=== PATIENT | male | born 1990 | race American Indian/Alaskan Native ===

== ENCOUNTER 2017-11-12 20:28 | Inpatient (IN) | payer SELFPAY ==
[2017-11-12] MEDS ORDERED: NACL 0.9% 500 ML 500 ML IV ONE (20:46)
[2017-11-12 21:09] LABS: Hematocrit 44.6 % (35.5-45.6); Mean Corpuscular HGB Conc 34 % (32-34); Mean Corpuscular Hemoglobin 28 pg (28-32); Mean Corpuscular Volume 85 fl (84-94); Platelet Count 159 K/mm3 (140-440); Red Blood Count 5.27 M/mm3 (3.65-5.03); Red Cell Distribution Width 14.1 % (13.2-15.2)
[2017-11-12 21:19] LABS: INR 1.22 (0.87-1.13)
[2017-11-12 21:32] LABS: Alanine Aminotransferase 223 units/L (7-56); Albumin 4.2 g/dL (3.9-5); BUN/Creatinine Ratio 11; Blood Urea Nitrogen 15 mg/dL (9-20); Calcium 9.2 mg/dL (8.4-10.2); Hemolysis Index 2
[2017-11-12] MEDS ORDERED: TYLENOL ONE (21:47)
[2017-11-12] MEDS ORDERED: TYLENOL PO ONE (21:51)
[2017-11-12 22:00] LABS: Basophils % (Manual) 0 % (0.0-1.8); RBC Morphology Normal; Total Cells Counted 100
[2017-11-12] MEDS ORDERED: NACL 0.9% 1000 ML 1,000 ML IV ONE (22:04)
--- NOTE | 2017-11-12 22:22 | XRay Report ---
FINAL REPORT PROCEDURE: XR CHEST ROUTINE 2V TECHNIQUE: PA and lateral chest radiographs were obtained. CPT 69145 HISTORY: Shortness of breath COMPARISON: No prior studies are available for comparison. FINDINGS: Heart: Normal. Mediastinum/Vessels: Normal. Lungs/Pleural space: Normal. Bony thorax: No acute osseous abnormality. Other: IMPRESSION: Normal examination.
[2017-11-12] MEDS ORDERED: TORADOL IV ONE (22:37)
--- NOTE | 2017-11-12 22:37 | Emergency Department Report ---
HPI - General Chief Complaint: Chest Pain Time Seen by Provider: 11/12/17 21:57 - HPI HPI: 27-year-old male presents to the emergency department with complaint of fever, chills, body aches, sneezing and some intermittent abdominal and/or chest/lungs pains. He says that mostly the abdomen and/or chest only hurts when he is sneezing. He denies any sore throat, cough, rash. He does not have any past medical history. No recent travel or sick contacts at home. He denies any heavy alcohol or illicit drug use. He's been taking Advil and Mucinex for his discomfort and symptoms for the past 2 days. He says that the symptoms started on Thursday, 2 days ago, but yesterday everything got much worse. ED Past Medical Hx - Past Medical History Previous Medical History?: No - Surgical History Past Surgical History?: No - Social History Smoking Status: Never Smoker Substance Use Type: Marijuana - Medications Home Medications: Home Medications Medication Instructions Recorded Confirmed Last Taken Type No Known Home Medications [No 11/12/17 11/12/17 Unknown History Reported Home Medications] ED Review of Systems ROS: Stated complaint: FLU LIKE SX Other details as noted in HPI Comment: All other systems reviewed and negative Constitutional: chills, fever Eyes: denies: eye pain, eye discharge, vision change ENT: denies: ear pain, throat pain Respiratory: denies: cough, wheezing Cardiovascular: denies: palpitations, edema Gastrointestinal: abdominal pain. denies: nausea, vomiting Genitourinary: denies: urgency, dysuria Musculoskeletal: myalgia. denies: joint swelling Skin: denies: rash, lesions Neurological: headache. denies: numbness Physical Exam - Physical Exam Vital Signs: Vital Signs 11/12/17 20:36 Temperature 102.7 F H Pulse Rate 131 H Blood Pressure 108/66 O2 Sat by Pulse 100 Oximetry Physical Exam: GENERAL: The patient is well-developed well-nourished. HENT: Normocephalic. Atraumatic. Patient has moist mucous membranes. Oropharynx is clear without tonsillar hypertrophy, erythema or exudates. EYES: Extraocular motions are intact. Pupils equal reactive to light bilaterally. There is some bilateral conjunctival injection. NECK: Supple. Trachea is midline. CHEST/LUNGS: Clear to auscultation. There is no respiratory distress noted. HEART/CARDIOVASCULAR: Regular. There is mild to moderate tachycardia. There is no murmur. ABDOMEN: Abdomen is soft. Mild tenderness palpation to the right upper quadrant and epigastrium. No guarding. Negative Duran sign. Patient has normal bowel sounds. There is no abdominal distention. SKIN: Skin is hot but dry. NEURO: The patient is awake, alert, and oriented. The patient is cooperative. The patient has no focal neurologic deficits. The patient has normal speech and gait. MUSCULOSKELETAL: There is no tenderness or deformity. There is no limitation range of motion. There is no evidence of acute injury. ED Course Vital Signs 11/12/17 20:36 Temperature 102.7 F H Pulse Rate 131 H Blood Pressure 108/66 O2 Sat by Pulse 100 Oximetry - Consultations Consultation #1: I had spoken to the records management clerk web production designer, Dr. Mayes, who listened to the case presentation including the abnormal belly labs, gallbladder sludge and patient's presentation with fever. At first I suggested the patient might be able to go home and Dr. Mayes recommended that the patient return if there is any fever, chills and abdominal pain and that the patient should have a low threshold to return. Upon reevaluation, the patient remains tachycardic and did present with the fever and mild abdominal pains. Therefore the patient will be admitted to the hospital and gastroenterology has been added as a consult. 11/13/17 01:33 ED Medical Decision Making - Lab Data Result diagrams: 11/12/17 20:48 11/12/17 20:54 - Radiology Data Radiology results: report reviewed, image reviewed interpreted by me: Chest x-ray does not show any acute process. There are no pleural effusions, obvious pneumonia and there is no pneumothorax. Ultrasound of the upper abdomen shows sludge in the gallbladder but there are no shadowing stones and no signs of biliary dilatation. - Medical Decision Making Patient presents with 1-2 days of what he describes as flulike symptoms but definitely with some fever, chills, body aches. He does not describe serious abdominal pain but does say that when he sneezes or moves in a certain manner that he can feel it in his abdomen and sometimes his chest. Prior to getting any labs back, the patient did get a dose of Tylenol but secondary to the elevated bilirubin and LFTs he will not receive any more Tylenol until cleared to get some from gastroenterology and/or medicine. He was given some Toradol after he was seen to have no renal insufficiency. Patient has a leukocytosis with a left shift. He has a total bilirubin of 4.2, AST of 72 and ALT of 223. Ultrasound was done that shows gallbladder sludge but no signs of biliary dilatation or obvious stone. Negative hepatitis panel. Negative for influenza. Chest x-ray does not show any acute process. It is possible that the patient has a viral syndrome but there are otherwise has not been any etiology of the patient's fever, nor his elevated LFTs. His vitals did improve with some IV fluid resuscitation and antipyretics. However the patient continues to have some tachycardia, even at rest. Since the patient is young, without any past medical history, and suddenly has these elevated LFTs along with a fever without a known source, I decided to admit the patient to the hospital for further evaluation and treatment. He was accepted for admission by the hospitalist, Dr. Ledesma, and a gastroenterology consult has been placed. Blood cultures have been sent and the patient will be started on broad-spectrum antibiotics. - Differential Diagnosis influenza, viral syndrome, cholangitis, cholecystitis, pneumonia, sepsis Critical Care Time: No Critical care attestation.: If time is entered above; I have spent that time in minutes in the direct care of this critically ill patient, excluding procedure time. ED Disposition Clinical Impression: Elevated LFTs, Hypokalemia Fever Qualifiers: Fever type: unspecified Qualified Code(s): R50.9 - Fever, unspecified Leukocytosis Qualifiers: Leukocytosis type: unspecified Qualified Code(s): D72.829 - Elevated white blood cell count, unspecified Disposition: OP ADMIT IP TO THIS HOSP Is pt being admited?: Yes Condition: Stable Referrals: PRIMARY CARE, [Primary Care Provider] - 3-5 Days Time of Disposition: 01:39
[2017-11-12 22:53] LABS: Hepatitis A Antibody IgM Non-Reactive (NonReactive); Hepatitis B Core IgM Non-Reactive (NonReactive); Hepatitis B Surface Antigen Non-Reactive (Negative); Hepatitis C Virus Antibody Non-Reactive (NonReactive)
[2017-11-12] MEDS ORDERED: K-DUR PO ONE (22:55)
--- NOTE | 2017-11-12 23:44 | Ultrasound Report ---
FINAL REPORT PROCEDURE: US ABDOMEN LIMITED TECHNIQUE: Real-time sonography in multiple planes of the gallbladder fossa and CBD with imaging of the adjacent liver, pancreas, and right kidney was performed with image documentation. CPT 15555 HISTORY: Upper abd pain, elevated LFT/Bili COMPARISON: No prior studies are available for comparison. FINDINGS: Liver: Increased echogenicity consistent with fatty infiltration. Gallbladder: No shadowing stones. Echogenic sludge in the gallbladder. Intrahepatic bile ducts: Normal . Extrahepatic bile ducts: Normal. Common duct measures 0.4 cm. Pancreas: Normal as visualized with suboptimal depiction of the pancreatic tail. Right kidney: Normal echotexture. No focal renal mass, calculus, or hydronephrosis. Other: No free fluid. IMPRESSION: Echogenic sludge in the gallbladder. No shadowing stone. No biliary dilatation.
[2017-11-13] MEDS ORDERED: ZOSYN/NS 4.5GM/100ML 4.5 GM/100 ML VIAL IV SCH (02:00)
[2017-11-13] MEDS ORDERED: ZOFRAN IV PRN (02:39)
[2017-11-13 04:04] LABS: Bilirubin,Urine SM (Negative); Blood,Urine MOD (Negative); Color,Urine Amber (Yellow); Granular Casts,Urine 5 /LPF; Hyaline Casts,Urine 29 /LPF; Mucus,Urine 1+ /HPF
[2017-11-13 04:14] LABS: Ictotest,Urine Positive (Negative)
[2017-11-13] MEDS: TYLENOL PO PRN ×4 (05:20→22:32)
[2017-11-13] MEDS: NACL 0.9% 1000 ML 1,000 ML IV SCH (05:39)
--- NOTE | 2017-11-13 07:13 | History and Physical Report ---
DATE OF ADMISSION: 11/13/2017. CHIEF COMPLAINT: Flu-like symptom. HISTORY OF PRESENT ILLNESS: The patient is a 27-year-old male who presented with flu-like symptoms that include fever, bodyaches, chills, sneezing, and intermittent abdominal and chest pain. The patient said that his chest and abdomen hurts when he sneezes. There is no history of sore throat. No history of cough and no history of shortness of breath. The patient denied any contact with any sick person at home and admitted to having nausea with no vomiting. Also, the patient has history of diarrhea and said that he has been taking Advil or Mucinex for his symptoms for about two days, but the symptoms became worse 24 hours prior to presentation. The patient was seen in the Emergency Room, evaluated, and found to have sludge in the gallbladder with no stones from the ultrasound result. Also, the patient was noted to be tachycardic with elevated bilirubin and elevated liver transaminases, and presented for further evaluation. PAST MEDICAL HISTORY: Unremarkable. FAMILY HISTORY: Noncontributory. PAST SURGICAL HISTORY: Unremarkable. SOCIAL HISTORY: The patient does not smoke cigarettes, does smokes marijuana, and does not drink alcohol. MEDICATIONS: The patient is not on any medication. ALLERGIES: There are no known drug allergies. REVIEW OF SYSTEMS: CONSTITUTIONAL: Fever and chills present. No diaphoresis. HEENT: There is no headache or sore throat. CARDIOVASCULAR SYSTEM: Chest discomfort noted. No orthopnea. RESPIRATORY SYSTEM: Sneezing present. No cough, no shortness of breath. GASTROINTESTINAL SYSTEM: Abdominal pain present. Nausea present. Diarrhea present. No vomiting. NEUROLOGICAL SYSTEM: There is no numbness, no dizziness, no altered mental status. MUSCULOSKELETAL SYSTEM: There is no joint pain or swelling. DERMATOLOGICAL SYSTEM: There is no skin rash or itching. GENITOURINARY SYSTEM: There is no dysuria, hematuria or flank pain. Rest of system review is normal. PHYSICAL EXAMINATION: GENERAL: At the time of exam, the patient was found to be alert, oriented x 3, and not in acute distress. VITAL SIGNS: Shows temperature of 97.8 degree Fahrenheit, pulse of 98, respirations 25, blood pressure 110/63, O2 sat of 99% on room air. HEENT: Exam showed pupils to be equal, round, reactive to light and accommodation. Extraocular muscles are intact. NECK: Supple with no JVD or carotid bruit. CARDIOVASCULAR SYSTEM: Show normal first and second heart sounds with no gallops or murmurs. RESPIRATORY SYSTEM: Show good air entry on both sides of the lungs with no abdominal breath sounds. GASTROINTESTINAL SYSTEM: Show abdomen to be full, soft, and nontender with no organomegaly or rigidity. NEUROLOGIC: Exam shows no focal deficit. MUSCULOSKELETAL SYSTEM: Show no joint swelling or tenderness. DERMATOLOGICAL SYSTEM: Show no skin rash. GENITOURINARY: Showing no costovertebral angle tenderness. PERTINENT LABORATORY DATA AND IMAGING STUDIES: The patient had chest x-ray done and the chest x-ray show no acute cardiopulmonary lesion. Also, the patient had an abdominal ultrasound done that shows echogenic sludge in the gallbladder with no stones found and no biliary dilatation seen. The patient's lab test shows CBC with elevated white count of 14,500, with normal hemoglobin, normal hematocrit, and normal MCV. The patient's CBC differential shows elevated segmented neutrophil of 88% with no significant bands. Patient's coagulation studies were unremarkable. The patient's chemistry showed low potassium of 3.4, low sodium of 130, and low chloride of 96.9. The patient's total bilirubin is high with a value of 4.2. Liver transaminases show a high AST of 72 and high ALT of 223, with elevated alkaline phosphatase of 173. This patient's acetaminophen level was unremarkable. Hepatitis serology came back unremarkable. DIAGNOSES: 1. Fever. 2. Leukocytosis. 3. Elevated bilirubin. 4. Systemic inflammatory response syndrome. PLAN: The patient will be admitted to medical floor and will be on intravenous normal saline at 125 mL an hour. The patient will also be on Tylenol 650 mg by mouth every 4 hours for fever and headache and will be on intravenous Levaquin 750 mg daily as an empiric treatment for the presentations of fever, leukocytosis, and systemic inflammatory response syndrome. The patient will continue Gastroenterology consult with Dr. Gerber Pappas. Deep venous thrombosis prophylaxis will be through heparin 5000 units subcutaneous every 12 hours. The patient has already had potassium replacement in the Emergency Room. The patient's urinalysis will be done when the urine is available. JOB# [id number] OCN/NTS
[2017-11-13] MEDS: LEVAQUIN 750MG/150ML 750 MG/150 ML BAG IV SCH (09:52)
[2017-11-13] MEDS: HEPARIN SUB-Q SCH ×2 (09:53→22:33)
[2017-11-13 11:44] LABS: Alanine Aminotransferase 170 units/L (7-56); Albumin 3.6 g/dL (3.9-5); BUN/Creatinine Ratio 12; Blood Urea Nitrogen 15 mg/dL (9-20); Calcium 8.8 mg/dL (8.4-10.2); Hemolysis Index 0
--- NOTE | 2017-11-13 12:04 | Gastroenterology Consultation ---
<SEVENYAZMINSAUNDRA BOUCHER - Last Filed: 11/13/17 12:19> History of Present Illness - Reason for Consult Consult date: 11/13/17 Intermittent abdominal pain, elevated LFTS Requesting physician: ANNETTA HONG - History of Present Illness Mr Garrett is a 27 y/o male admitted with a 4 day hx of body aches, fever, intermittent abdominal pain and diarrhea. On admission he was found to have low grade fever and WBC 14.5, elevated ast 72, alt 223, ALP 173 and TB 4.2. He has no appetite. He also complaints of neck spams and headache. No prior medical hx. Family is at bedside. He denies illicit drug use, ETOH only on weekends. Past History Past Surgical History: No surgical history Social history: no significant social history Family history: no significant family history Medications and Allergies Allergies Allergy/AdvReac Type Severity Reaction Status Date / Time No Known Allergies Allergy Verified 11/12/17 21:50 Home Medications Medication Instructions Recorded Confirmed Last Taken Type No Known Home Medications [No 11/12/17 11/12/17 Unknown History Reported Home Medications] Active Meds: Active Medications Acetaminophen (Tylenol) 650 mg PO Q4H PRN PRN Reason: For Pain/Fever/Headache Last Admin: 11/13/17 05:20 Dose: 650 mg Heparin Sodium (Porcine) (Heparin) 5,000 unit SUB-Q Q12HR BERTA Last Admin: 11/13/17 09:53 Dose: 5,000 unit Levofloxacin/Dextrose (Levaquin 750mg/150ml) 750 mg in 150 mls @ 100 mls/hr IV Q24HR BERTA; Protocol Last Admin: 11/13/17 09:52 Dose: 100 mls/hr Sodium Chloride (Nacl 0.9% 1000 Ml) 1,000 mls @ 125 mls/hr IV DIRECT BERTA Last Admin: 11/13/17 05:39 Dose: 125 mls/hr Ondansetron HCl (Zofran) 4 mg IV Q8H PRN PRN Reason: Nausea And Vomiting Review of Systems - Review of Systems All systems: negative Constitutional: anorexia, weakness Gastrointestinal: abdominal pain, nausea, vomiting, diarrhea Exam - Constitutional Vital Signs: Temp Pulse Resp BP Pulse Ox 100.1 F H 104 H 22 113/60 95 11/13/17 08:08 11/13/17 08:08 06/08/18 08:08 11/13/17 08:08 11/13/17 08:08 General appearance: no acute distress - EENT Eyes: EOM intact ENT: hearing intact - Neck Neck: supple - Respiratory Respiratory: bilateral: CTA - Cardiovascular Heart Sounds: Present: S1 & S2 Extremities: Full ROM - Gastrointestinal General gastrointestinal: Present: soft, tender, normal bowel sounds - Integumentary Integumentary: Present: warm, dry - Neurologic Neurological: alert and oriented x3 - Psychiatric Psychiatric: appropriate mood/affect - Labs CBC & Chem 7: 11/12/17 20:48 11/13/17 10:46 Lab Results: Laboratory Results - last 24 hr 11/12/17 11/12/17 11/12/17 20:48 20:48 20:54 WBC 14.5 H RBC 5.27 H Hgb 15.0 Hct 44.6 MCV 85 MCH 28 MCHC 34 RDW 14.1 Plt Count 159 Add Manual Diff Complete Total Counted 100 Seg Neutrophils % Machine Slat Basket Maker Seg Neuts % (Manual) 88.0 H Band Neutrophils % 0 Lymphocytes % (Manual) 4.0 L Reactive Lymphs % (Man) 0 Monocytes % (Manual) 6.0 Eosinophils % (Manual) 2.0 Basophils % (Manual) 0 Metamyelocytes % 0 Myelocytes % 0 Promyelocytes % 0 Blast Cells % 0 Nucleated RBC % Not Reportable Seg Neutrophils # Man 12.8 H Band Neutrophils # 0.0 Lymphocytes # (Manual) 0.6 L Abs React Lymphs (Man) 0.0 Monocytes # (Manual) 0.9 H Eosinophils # (Manual) 0.3 Basophils # (Manual) 0.0 Metamyelocytes # 0.0 Myelocytes # 0.0 Promyelocytes # 0.0 Blast Cells # 0.0 WBC Morphology Not Reportable Hypersegmented Neuts Not Reportable Hyposegmented Neuts Not Reportable Hypogranular Neuts Not Reportable Smudge Cells Not Reportable Toxic Granulation Not Reportable Toxic Vacuolation Not Reportable Dohle Bodies Not Reportable Pelger-Huet Anomaly Not Reportable Gina Rods Not Reportable Platelet Estimate Not Reportable Clumped Platelets Not Reportable Plt Clumps, EDTA Not Reportable Large Platelets Not Reportable Giant Platelets Not Reportable Platelet Satelliting Not Reportable Plt Morphology Comment Not Reportable RBC Morphology Normal Dimorphic RBCs Not Reportable Polychromasia Not Reportable Hypochromasia Not Reportable Poikilocytosis Not Reportable Anisocytosis Not Reportable Microcytosis Not Reportable Macrocytosis Not Reportable Spherocytes Not Reportable Pappenheimer Bodies Not Reportable Sickle Cells Not Reportable Target Cells Not Reportable Tear Drop Cells Not Reportable Ovalocytes Not Reportable Helmet Cells Not Reportable Foote-Cearfoss Bodies Not Reportable Heppner Rings Not Reportable Usama Cells Not Reportable Bite Cells Not Reportable Crenated Cell Not Reportable Elliptocytes Not Reportable Acanthocytes (Spur) Not Reportable Rouleaux Not Reportable Hemoglobin C Crystals Not Reportable Schistocytes Not Reportable Malaria parasites Not Reportable Pardeep Bodies Not Reportable Hem Pathologist Commnt No PT INR VBG pH Sodium 134 L Potassium 3.4 L Chloride 96.9 L Carbon Dioxide 22 Anion Gap 19 BUN 15 Creatinine 1.4 Estimated GFR > 60 BUN/Creatinine Ratio 11 Glucose 134 H Lactic Acid Calcium 9.2 Total Bilirubin 4.20 H AST 72 H ALT 223 H Alkaline Phosphatase 173 H Troponin T < 0.010 Total Protein 7.7 Albumin 4.2 Albumin/Globulin Ratio 1.2 Urine Color Urine Turbidity Urine pH Ur Specific [place] Urine Protein Urine Glucose (UA) Urine Ketones Urine Blood Urine Nitrite Urine Bilirubin Urine Ictotest Urine Urobilinogen Ur Leukocyte Esterase Urine WBC (Auto) Urine RBC (Auto) U Epithel Cells (Auto) Hyaline Casts Granular Casts Urine Mucus Acetaminophen Hepatitis A IgM Ab Hep Bs Antigen Hep B Core IgM Ab Hepatitis C Antibody Influenza A (Rapid) Influenza B (Rapid) 11/12/17 11/12/17 11/12/17 20:55 20:55 20:55 WBC RBC Hgb Hct MCV MCH MCHC RDW Plt Count Add Manual Diff Total Counted Seg Neutrophils % Seg Neuts % (Manual) Band Neutrophils % Lymphocytes % (Manual) Reactive Lymphs % (Man) Monocytes % (Manual) Eosinophils % (Manual) Basophils % (Manual) Metamyelocytes % Myelocytes % Promyelocytes % Blast Cells % Nucleated RBC % Seg Neutrophils # Man Band Neutrophils # Lymphocytes # (Manual) Abs React Lymphs (Man) Monocytes # (Manual) Eosinophils # (Manual) Basophils # (Manual) Metamyelocytes # Myelocytes # Promyelocytes # Blast Cells # WBC Morphology Hypersegmented Neuts Hyposegmented Neuts Hypogranular Neuts Smudge Cells Toxic Granulation Toxic Vacuolation Dohle Bodies Pelger-Huet Anomaly Gina Rods Platelet Estimate Clumped Platelets Plt Clumps, EDTA Large Platelets Giant Platelets Platelet Satelliting Plt Morphology Comment RBC Morphology Dimorphic RBCs Polychromasia Hypochromasia Poikilocytosis Anisocytosis Microcytosis Macrocytosis Spherocytes Pappenheimer Bodies Sickle Cells Target Cells Tear Drop Cells Ovalocytes Helmet Cells Foote-Cearfoss Bodies Heppner Rings Fortine Cells Bite Cells Crenated Cell Elliptocytes Acanthocytes (Spur) Rouleaux Hemoglobin C Crystals Schistocytes Malaria parasites Pardeep Bodies Hem Pathologist Commnt PT 16.1 H INR 1.22 H VBG pH 7.436 H Sodium Potassium Chloride Carbon Dioxide Anion Gap BUN Creatinine Estimated GFR BUN/Creatinine Ratio Glucose Lactic Acid 1.30 Calcium Total Bilirubin AST ALT Alkaline Phosphatase Troponin T Total Protein Albumin Albumin/Globulin Ratio Urine Color Urine Turbidity Urine pH Ur Specific [place] Urine Protein Urine Glucose (UA) Urine Ketones Urine Blood Urine Nitrite Urine Bilirubin Urine Ictotest Urine Urobilinogen Ur Leukocyte Esterase Urine WBC (Auto) Urine RBC (Auto) U Epithel Cells (Auto) Hyaline Casts Granular Casts Urine Mucus Acetaminophen Hepatitis A IgM Ab Hep Bs Antigen Hep B Core IgM Ab Hepatitis C Antibody Influenza A (Rapid) Influenza B (Rapid) 11/12/17 11/12/17 11/12/17 22:14 22:17 22:40 WBC RBC Hgb Hct MCV MCH MCHC RDW Plt Count Add Manual Diff Total Counted Seg Neutrophils % Seg Neuts % (Manual) Band Neutrophils % Lymphocytes % (Manual) Reactive Lymphs % (Man) Monocytes % (Manual) Eosinophils % (Manual) Basophils % (Manual) Metamyelocytes % Myelocytes % Promyelocytes % Blast Cells % Nucleated RBC % Seg Neutrophils # Man Band Neutrophils # Lymphocytes # (Manual) Abs React Lymphs (Man) Monocytes # (Manual) Eosinophils # (Manual) Basophils # (Manual) Metamyelocytes # Myelocytes # Promyelocytes # Blast Cells # WBC Morphology Hypersegmented Neuts Hyposegmented Neuts Hypogranular Neuts Smudge Cells Toxic Granulation Toxic Vacuolation Dohle Bodies Pelger-Huet Anomaly Gina Rods Platelet Estimate Clumped Platelets Plt Clumps, EDTA Large Platelets Giant Platelets Platelet Satelliting Plt Morphology Comment RBC Morphology Dimorphic RBCs Polychromasia Hypochromasia Poikilocytosis Anisocytosis Microcytosis Macrocytosis Spherocytes Pappenheimer Bodies Sickle Cells Target Cells Tear Drop Cells Ovalocytes Helmet Cells Foote-Cearfoss Bodies Heppner Rings Fortine Cells Bite Cells Crenated Cell Elliptocytes Acanthocytes (Spur) Rouleaux Hemoglobin C Crystals Schistocytes Malaria parasites Pardeep Bodies Hem Pathologist Commnt PT INR VBG pH Sodium Potassium Chloride Carbon Dioxide Anion Gap BUN Creatinine Estimated GFR BUN/Creatinine Ratio Glucose Lactic Acid Calcium Total Bilirubin AST ALT Alkaline Phosphatase Troponin T Total Protein Albumin Albumin/Globulin Ratio Urine Color Urine Turbidity Urine pH Ur Specific [place] Urine Protein Urine Glucose (UA) Urine Ketones Urine Blood Urine Nitrite Urine Bilirubin Urine Ictotest Urine Urobilinogen Ur Leukocyte Esterase Urine WBC (Auto) Urine RBC (Auto) U Epithel Cells (Auto) Hyaline Casts Granular Casts Urine Mucus Acetaminophen < 5.0 L Hepatitis A IgM Ab Non-reactive Hep Bs Antigen Non-reactive Hep B Core IgM Ab Non-reactive Hepatitis C Antibody Non-reactive Influenza A (Rapid) Negative Influenza B (Rapid) Negative 11/12/17 11/13/17 11/13/17 23:16 03:22 10:46 WBC RBC Hgb Hct MCV MCH MCHC RDW Plt Count Add Manual Diff Total Counted Seg Neutrophils % Seg Neuts % (Manual) Band Neutrophils % Lymphocytes % (Manual) Reactive Lymphs % (Man) Monocytes % (Manual) Eosinophils % (Manual) Basophils % (Manual) Metamyelocytes % Myelocytes % Promyelocytes % Blast Cells % Nucleated RBC % Seg Neutrophils # Man Band Neutrophils # Lymphocytes # (Manual) Abs React Lymphs (Man) Monocytes # (Manual) Eosinophils # (Manual) Basophils # (Manual) Metamyelocytes # Myelocytes # Promyelocytes # Blast Cells # WBC Morphology Hypersegmented Neuts Hyposegmented Neuts Hypogranular Neuts Smudge Cells Toxic Granulation Toxic Vacuolation Dohle Bodies Pelger-Huet Anomaly Gina Rods Platelet Estimate Clumped Platelets Plt Clumps, EDTA Large Platelets Giant Platelets Platelet Satelliting Plt Morphology Comment RBC Morphology Dimorphic RBCs Polychromasia Hypochromasia Poikilocytosis Anisocytosis Microcytosis Macrocytosis Spherocytes Pappenheimer Bodies Sickle Cells Target Cells Tear Drop Cells Ovalocytes Helmet Cells Foote-Cearfoss Bodies Heppner Rings Usama Cells Bite Cells Crenated Cell Elliptocytes Acanthocytes (Spur) Rouleaux Hemoglobin C Crystals Schistocytes Malaria parasites Pardeep Bodies Hem Pathologist Commnt PT INR VBG pH Sodium 139 Potassium 3.6 Chloride 101.2 Carbon Dioxide 23 Anion Gap 18 BUN 15 Creatinine 1.3 Estimated GFR > 60 BUN/Creatinine Ratio 12 Glucose 117 H Lactic Acid 1.00 Calcium 8.8 Total Bilirubin 5.40 H AST 59 H ALT 170 H Alkaline Phosphatase 154 H Troponin T Total Protein 7.1 Albumin 3.6 L Albumin/Globulin Ratio 1.0 Urine Color Lakshmi Urine Turbidity Slightly cloudy Urine pH 5.0 Ur Specific Temple 1.030 Urine Protein 100 mg/dl Urine Glucose (UA) Neg Urine Ketones Tr Urine Blood Mod Urine Nitrite Neg Urine Bilirubin Sm Urine Ictotest Positive Urine Urobilinogen 4.0 Ur Leukocyte Esterase Mod Urine WBC (Auto) 91.0 H Urine RBC (Auto) 4.0 U Epithel Cells (Auto) 1.0 Hyaline Casts 29 Granular Casts 5 Urine Mucus 1+ Acetaminophen Hepatitis A IgM Ab Hep Bs Antigen Hep B Core IgM Ab Hepatitis C Antibody Influenza A (Rapid) Influenza B (Rapid) Assessment and Plan 1. Elevated LFTS 2. Fever, low grade 3.abdominal Pain -Pt seems to have flu like, viral syndrome. Influenza swab negative -US with GB sludge only -WBC 14K -Doubt obstructive process -could be a viral type syndrome, Hepatitis negative. Check JUVENTINO, anti- smooth, EBV. -Further recommendations to follow. <TAPAN EGAN - Last Filed: 11/13/17 19:32> Medications and Allergies Active Meds: Active Medications Acetaminophen (Tylenol) 650 mg PO Q4H PRN PRN Reason: For Pain/Fever/Headache Last Admin: 11/13/17 18:11 Dose: 650 mg Famotidine (Pepcid) 20 mg PO BID [facility] Heparin Sodium (Porcine) (Heparin) 5,000 unit SUB-Q Q12HR BERTA Last Admin: 11/13/17 09:53 Dose: 5,000 unit Levofloxacin/Dextrose (Levaquin 750mg/150ml) 750 mg in 150 mls @ 100 mls/hr IV Q24HR BERTA; Protocol Last Admin: 11/13/17 09:52 Dose: 100 mls/hr Sodium Chloride (Nacl 0.9% 1000 Ml) 1,000 mls @ 125 mls/hr IV DIRECT BERTA Last Admin: 11/13/17 05:39 Dose: 125 mls/hr Ketorolac Tromethamine (Toradol) 15 mg IV Q8H PRN PRN Reason: Pain, Mild (1-3) Stop: 11/18/17 17:32 Last Admin: 11/13/17 18:11 Dose: 15 mg Ondansetron HCl (Zofran) 4 mg IV Q8H PRN PRN Reason: Nausea And Vomiting Zolpidem Tartrate (Ambien) 5 mg PO QHS PRN PRN Reason: Sleep Exam - Constitutional Vital Signs: Temp Pulse Resp BP Pulse Ox 102.0 F H 116 H 24 112/74 96 11/13/17 16:24 11/13/17 16:24 11/13/17 16:24 11/13/17 16:24 11/13/17 16:24 - Labs CBC & Chem 7: 11/12/17 20:48 11/13/17 10:46 Lab Results: Laboratory Results - last 24 hr 11/12/17 11/12/17 11/12/17 20:48 20:48 20:54 WBC 14.5 H RBC 5.27 H Hgb 15.0 Hct 44.6 MCV 85 MCH 28 MCHC 34 RDW 14.1 Plt Count 159 Add Manual Diff Complete Total Counted 100 Seg Neutrophils % Machine Slat Basket Maker Seg Neuts % (Manual) 88.0 H Band Neutrophils % 0 Lymphocytes % (Manual) 4.0 L Reactive Lymphs % (Man) 0 Monocytes % (Manual) 6.0 Eosinophils % (Manual) 2.0 Basophils % (Manual) 0 Metamyelocytes % 0 Myelocytes % 0 Promyelocytes % 0 Blast Cells % 0 Nucleated RBC % Not Reportable Seg Neutrophils # Man 12.8 H Band Neutrophils # 0.0 Lymphocytes # (Manual) 0.6 L Abs React Lymphs (Man) 0.0 Monocytes # (Manual) 0.9 H Eosinophils # (Manual) 0.3 Basophils # (Manual) 0.0 Metamyelocytes # 0.0 Myelocytes # 0.0 Promyelocytes # 0.0 Blast Cells # 0.0 WBC Morphology Not Reportable Hypersegmented Neuts Not Reportable Hyposegmented Neuts Not Reportable Hypogranular Neuts Not Reportable Smudge Cells Not Reportable Toxic Granulation Not Reportable Toxic Vacuolation Not Reportable Dohle Bodies Not Reportable Pelger-Huet Anomaly Not Reportable Gina Rods Not Reportable Platelet Estimate Not Reportable Clumped Platelets Not Reportable Plt Clumps, EDTA Not Reportable Large Platelets Not Reportable Giant Platelets Not Reportable Platelet Satelliting Not Reportable Plt Morphology Comment Not Reportable RBC Morphology Normal Dimorphic RBCs Not Reportable Polychromasia Not Reportable Hypochromasia Not Reportable Poikilocytosis Not Reportable Anisocytosis Not Reportable Microcytosis Not Reportable Macrocytosis Not Reportable Spherocytes Not Reportable Pappenheimer Bodies Not Reportable Sickle Cells Not Reportable Target Cells Not Reportable Tear Drop Cells Not Reportable Ovalocytes Not Reportable Helmet Cells Not Reportable Foote-Cearfoss Bodies Not Reportable Heppner Rings Not Reportable [place]ama Cells Not Reportable Bite Cells Not Reportable Crenated Cell Not Reportable Elliptocytes Not Reportable Acanthocytes (Spur) Not Reportable Rouleaux Not Reportable Hemoglobin C Crystals Not Reportable Schistocytes Not Reportable Malaria parasites Not Reportable Pardeep Bodies Not Reportable Hem Pathologist Commnt No PT INR VBG pH Sodium 134 L Potassium 3.4 L Chloride 96.9 L Carbon Dioxide 22 Anion Gap 19 BUN 15 Creatinine 1.4 Estimated GFR > 60 BUN/Creatinine Ratio 11 Glucose 134 H Lactic Acid Calcium 9.2 Total Bilirubin 4.20 H AST 72 H ALT 223 H Alkaline Phosphatase 173 H Troponin T < 0.010 Total Protein 7.7 Albumin 4.2 Albumin/Globulin Ratio 1.2 Urine Color Urine Turbidity Urine pH Ur Specific [place] Urine Protein Urine Glucose (UA) Urine Ketones Urine Blood Urine Nitrite Urine Bilirubin Urine Ictotest Urine Urobilinogen Ur Leukocyte Esterase Urine WBC (Auto) Urine RBC (Auto) U Epithel Cells (Auto) Hyaline Casts Granular Casts Urine Mucus Acetaminophen Hepatitis A IgM Ab Hep Bs Antigen Hep B Core IgM Ab Hepatitis C Antibody Influenza A (Rapid) Influenza B (Rapid) 11/12/17 11/12/17 11/12/17 20:55 20:55 20:55 WBC RBC Hgb Hct MCV MCH MCHC RDW Plt Count Add Manual Diff Total Counted Seg Neutrophils % Seg Neuts % (Manual) Band Neutrophils % Lymphocytes % (Manual) Reactive Lymphs % (Man) Monocytes % (Manual) Eosinophils % (Manual) Basophils % (Manual) Metamyelocytes % Myelocytes % Promyelocytes % Blast Cells % Nucleated RBC % Seg Neutrophils # Man Band Neutrophils # Lymphocytes # (Manual) Abs React Lymphs (Man) Monocytes # (Manual) Eosinophils # (Manual) Basophils # (Manual) Metamyelocytes # Myelocytes # Promyelocytes # Blast Cells # WBC Morphology Hypersegmented Neuts Hyposegmented Neuts Hypogranular Neuts Smudge Cells Toxic Granulation Toxic Vacuolation Dohle Bodies Pelger-Huet Anomaly Gina Rods Platelet Estimate Clumped Platelets Plt Clumps, EDTA Large Platelets Giant Platelets Platelet Satelliting Plt Morphology Comment RBC Morphology Dimorphic RBCs Polychromasia Hypochromasia Poikilocytosis Anisocytosis Microcytosis Macrocytosis Spherocytes Pappenheimer Bodies Sickle Cells Target Cells Tear Drop Cells Ovalocytes Helmet Cells Foote-Cearfoss Bodies Heppner Rings Usama Cells Bite Cells Crenated Cell Elliptocytes Acanthocytes (Spur) Rouleaux Hemoglobin C Crystals Schistocytes Malaria parasites Pardeep Bodies Hem Pathologist Commnt PT 16.1 H INR 1.22 H VBG pH 7.436 H Sodium Potassium Chloride Carbon Dioxide Anion Gap BUN Creatinine Estimated GFR BUN/Creatinine Ratio Glucose Lactic Acid 1.30 Calcium Total Bilirubin AST ALT Alkaline Phosphatase Troponin T Total Protein Albumin Albumin/Globulin Ratio Urine Color Urine Turbidity Urine pH Ur Specific [place] Urine Protein Urine Glucose (UA) Urine Ketones Urine Blood Urine Nitrite Urine Bilirubin Urine Ictotest Urine Urobilinogen Ur Leukocyte Esterase Urine WBC (Auto) Urine RBC (Auto) U Epithel Cells (Auto) Hyaline Casts Granular Casts Urine Mucus Acetaminophen Hepatitis A IgM Ab Hep Bs Antigen Hep B Core IgM Ab Hepatitis C Antibody Influenza A (Rapid) Influenza B (Rapid) 11/12/17 11/12/17 11/12/17 22:14 22:17 22:40 WBC RBC Hgb Hct MCV MCH MCHC RDW Plt Count Add Manual Diff Total Counted Seg Neutrophils % Seg Neuts % (Manual) Band Neutrophils % Lymphocytes % (Manual) Reactive Lymphs % (Man) Monocytes % (Manual) Eosinophils % (Manual) Basophils % (Manual) Metamyelocytes % Myelocytes % Promyelocytes % Blast Cells % Nucleated RBC % Seg Neutrophils # Man Band Neutrophils # Lymphocytes # (Manual) Abs React Lymphs (Man) Monocytes # (Manual) Eosinophils # (Manual) Basophils # (Manual) Metamyelocytes # Myelocytes # Promyelocytes # Blast Cells # WBC Morphology Hypersegmented Neuts Hyposegmented Neuts Hypogranular Neuts Smudge Cells Toxic Granulation Toxic Vacuolation Dohle Bodies Pelger-Huet Anomaly Gina Rods Platelet Estimate Clumped Platelets Plt Clumps, EDTA Large Platelets Giant Platelets Platelet Satelliting Plt Morphology Comment RBC Morphology Dimorphic RBCs Polychromasia Hypochromasia Poikilocytosis Anisocytosis Microcytosis Macrocytosis Spherocytes Pappenheimer Bodies Sickle Cells Target Cells Tear Drop Cells Ovalocytes Helmet Cells Foote-Cearfoss Bodies Heppner Rings Fortine Cells Bite Cells Crenated Cell Elliptocytes Acanthocytes (Spur) Rouleaux Hemoglobin C Crystals Schistocytes Malaria parasites Pardeep Bodies Hem Pathologist Commnt PT INR VBG pH Sodium Potassium Chloride Carbon Dioxide Anion Gap BUN Creatinine Estimated GFR BUN/Creatinine Ratio Glucose Lactic Acid Calcium Total Bilirubin AST ALT Alkaline Phosphatase Troponin T Total Protein Albumin Albumin/Globulin Ratio Urine Color Urine Turbidity Urine pH Ur Specific [place] Urine Protein Urine Glucose (UA) Urine Ketones Urine Blood Urine Nitrite Urine Bilirubin Urine Ictotest Urine Urobilinogen Ur Leukocyte Esterase Urine WBC (Auto) Urine RBC (Auto) U Epithel Cells (Auto) Hyaline Casts Granular Casts Urine Mucus Acetaminophen < 5.0 L Hepatitis A IgM Ab Non-reactive Hep Bs Antigen Non-reactive Hep B Core IgM Ab Non-reactive Hepatitis C Antibody Non-reactive Influenza A (Rapid) Negative Influenza B (Rapid) Negative 11/12/17 11/13/17 11/13/17 23:16 03:22 10:46 WBC RBC Hgb Hct MCV MCH MCHC RDW Plt Count Add Manual Diff Total Counted Seg Neutrophils % Seg Neuts % (Manual) Band Neutrophils % Lymphocytes % (Manual) Reactive Lymphs % (Man) Monocytes % (Manual) Eosinophils % (Manual) Basophils % (Manual) Metamyelocytes % Myelocytes % Promyelocytes % Blast Cells % Nucleated RBC % Seg Neutrophils # Man Band Neutrophils # Lymphocytes # (Manual) Abs React Lymphs (Man) Monocytes # (Manual) Eosinophils # (Manual) Basophils # (Manual) Metamyelocytes # Myelocytes # Promyelocytes # Blast Cells # WBC Morphology Hypersegmented Neuts Hyposegmented Neuts Hypogranular Neuts Smudge Cells Toxic Granulation Toxic Vacuolation Dohle Bodies Pelger-Huet Anomaly Gina Rods Platelet Estimate Clumped Platelets Plt Clumps, EDTA Large Platelets Giant Platelets Platelet Satelliting Plt Morphology Comment RBC Morphology Dimorphic RBCs Polychromasia Hypochromasia Poikilocytosis Anisocytosis Microcytosis Macrocytosis Spherocytes Pappenheimer Bodies Sickle Cells Target Cells Tear Drop Cells Ovalocytes Helmet Cells Foote-Cearfoss Bodies Heppner Rings Usama Cells Bite Cells Crenated Cell Elliptocytes Acanthocytes (Spur) Rouleaux Hemoglobin C Crystals Schistocytes Malaria parasites Pardeep Bodies Hem Pathologist Commnt PT INR VBG pH Sodium 139 Potassium 3.6 Chloride 101.2 Carbon Dioxide 23 Anion Gap 18 BUN 15 Creatinine 1.3 Estimated GFR > 60 BUN/Creatinine Ratio 12 Glucose 117 H Lactic Acid 1.00 Calcium 8.8 Total Bilirubin 5.40 H AST 59 H ALT 170 H Alkaline Phosphatase 154 H Troponin T Total Protein 7.1 Albumin 3.6 L Albumin/Globulin Ratio 1.0 Urine Color Lakshmi Urine Turbidity Slightly cloudy Urine pH 5.0 Ur Specific [place] 1.030 Urine Protein 100 mg/dl Urine Glucose (UA) Neg Urine Ketones Tr Urine Blood Mod Urine Nitrite Neg Urine Bilirubin Sm Urine Ictotest Positive Urine Urobilinogen 4.0 Ur Leukocyte Esterase Mod Urine WBC (Auto) 91.0 H Urine RBC (Auto) 4.0 U Epithel Cells (Auto) 1.0 Hyaline Casts 29 Granular Casts 5 Urine Mucus 1+ Acetaminophen Hepatitis A IgM Ab Hep Bs Antigen Hep B Core IgM Ab Hepatitis C Antibody Influenza A (Rapid) Influenza B (Rapid) Assessment and Plan - Patient Problems (1) Elevated LFTs Current Visit: Yes Status: Acute Plan to address problem: The patient was seen and examined. He appears to have a viral syndrome with fever, myalgias, diarrhea and nausea in association with elevated LFTs. Hepatitis A, B and C studies are negative. He should be screened for other viruses, eg EBV, mono, flu. Less likely autoimmune. Will follow and advise. May need MRCP to non invasively evaluate the bile ducts. Less likely this could be Primary Sclerosing Cholangitis, but the presentation would be atypical.
--- NOTE | 2017-11-13 17:21 | Event Note ---
Date: 11/13/17 Patient seen and examined medical records reviewe Was admitted this morning with fevers and transaminitis Complains of mild nausea, no vomiting, persistent fever MAXIMUM TEMPERATURE 102 GI evaluated the patient, workup is in progress Empiric antibiotics Levaquin, cultures sent and pending report Continue current management, consider ID evaluation if no improvement Plan of care reviewed with the mother at the bedside, the patient and his nurse
[2017-11-13] MEDS ORDERED: AMBIEN PO PRN (17:22)
[2017-11-13] MEDS: TORADOL IV PRN (18:11)
[2017-11-13] MEDS: PEPCID PO SCH (22:33)
[2017-11-13 23:26] LABS: Amphetamine Screen,Urine PRESUMPTIVE NEGATIVE; Benzodiazepines Screen,Urine PRESUMPTIVE NEGATIVE; Cocaine Screen,Urine PRESUMPTIVE NEGATIVE; Methadone Screen,Urine PRESUMPTIVE NEGATIVE; Opiate Screen,Urine PRESUMPTIVE NEGATIVE
[2017-11-13 23:45] LABS: Cannabinoid Screen,Urine PRESUMPTIVE POSITIVE
[2017-11-14] MEDS: NACL 0.9% 1000 ML 1,000 ML IV SCH ×2 (01:07→22:30)
[2017-11-14 06:35] LABS: Basophils % (Auto) 0.4 % (0.0-1.8); Eosinophils # (Auto) 0.4 K/mm3 (0.0-0.4); Eosinophils % (Auto) 3.4 % (0.0-4.3); Hematocrit 38.7 % (35.5-45.6); Lymphocytes # (Auto) 0.5 K/mm3 (1.2-5.4); Mean Corpuscular HGB Conc 34 % (32-34); Mean Corpuscular Hemoglobin 29 pg (28-32); Mean Corpuscular Volume 85 fl (84-94); Monocytes % (Auto) 7.9 % (0.0-7.3); Platelet Count 128 K/mm3 (140-440); Red Blood Count 4.55 M/mm3 (3.65-5.03); Red Cell Distribution Width 14.5 % (13.2-15.2)
[2017-11-14 07:01] LABS: Alanine Aminotransferase 143 units/L (7-56); Albumin 3.3 g/dL (3.9-5); BUN/Creatinine Ratio 11; Blood Urea Nitrogen 12 mg/dL (9-20); Calcium 8.5 mg/dL (8.4-10.2); Hemolysis Index 1
[2017-11-14] MEDS: LEVAQUIN 750MG/150ML 750 MG/150 ML BAG IV SCH (10:52)
[2017-11-14] MEDS: PEPCID PO SCH ×2 (10:53→22:30)
[2017-11-14] MEDS: HEPARIN SUB-Q SCH ×2 (10:53→22:30)
--- NOTE | 2017-11-14 12:23 | Progress Note ---
Assessment and Plan Assessment and plan: --Febrile illness; possible viral syndrome Fevers trending down, continue antipyretics, empiric antibiotics Follow cultures, IV fluids and supportive care --Acute liver injury; with transaminitis; Hepatitis panel negative, closely monitor, GI following --Hyper bilirubinemia; GI following, possible MRCP, supportive care --Hypomagnesemia/hypokalemia/hypophosphatemia; replenished per protocol and monitor level --Moderate malnutrition/hypoalbuminemia; nutrition supplements and supportive care --DVT prophylaxis with Lovenox Closely monitor the patient and adjust management as needed Plan of care reviewed with the patient and his nurse History Interval history: Patient seen and examined medical records reviewed Patient remains febrile, complaints of generalized body pains On empiric IV antibiotics, Mild nausea no vomiting Alert awake oriented 3, mild distress due to fever Hospitalist Physical - Constitutional Vitals: Temp Pulse Resp BP Pulse Ox 99.9 F H 112 H 20 115/61 96 11/14/17 07:42 11/14/17 07:42 11/14/17 07:42 11/14/17 07:42 11/14/17 07:42 General appearance: Present: mild distress, well-nourished, obese - EENT Eyes: Present: PERRL, EOM intact - Neck Neck: Present: supple, normal ROM - Respiratory Respiratory effort: normal Respiratory: bilateral: diminished, negative: rales, rhonchi, wheezing - Cardiovascular Rhythm: regular Heart Sounds: Present: S1 & S2 - Extremities Extremities: no ischemia, No edema - Abdominal General gastrointestinal: soft, non-tender, non-distended, normal bowel sounds - Integumentary Integumentary: Present: clear, warm - Psychiatric Psychiatric: appropriate mood/affect, cooperative - Neurologic Neurologic: CNII-XII intact, moves all extremities Results - Labs CBC & Chem 7: 11/15/17 09:00 11/15/17 09:00 Labs: Laboratory Last Values WBC 12.4 K/mm3 (4.5-11.0) H 11/14/17 05:23 RBC 4.55 M/mm3 (3.65-5.03) 11/14/17 05:23 Hgb 13.0 gm/dl (11.8-15.2) 11/14/17 05:23 Hct 38.7 % (35.5-45.6) 11/14/17 05:23 MCV 85 fl (84-94) 11/14/17 05:23 MCH 29 pg (28-32) 11/14/17 05:23 MCHC 34 % (32-34) 11/14/17 05:23 RDW 14.5 % (13.2-15.2) 11/14/17 05:23 Plt Count 128 K/mm3 (140-440) L 11/14/17 05:23 Lymph % (Auto) 4.0 % (13.4-35.0) L 11/14/17 05:23 [place] % (Auto) 7.9 % (0.0-7.3) H 11/14/17 05:23 Eos % (Auto) 3.4 % (0.0-4.3) 11/14/17 05:23 Baso % (Auto) 0.4 % (0.0-1.8) 11/14/17 05:23 Lymph # 0.5 K/mm3 (1.2-5.4) L 11/14/17 05:23 [place] # 1.0 K/mm3 (0.0-0.8) H 11/14/17 05:23 Eos # 0.4 K/mm3 (0.0-0.4) 11/14/17 05:23 Baso # 0.0 K/mm3 (0.0-0.1) 11/14/17 05:23 Add Manual Diff Complete 11/12/17 20:48 Total Counted 100 11/12/17 20:48 Seg Neutrophils % 84.3 % (40.0-70.0) H 11/14/17 05:23 Seg Neuts % (Manual) 88.0 % (40.0-70.0) H 11/12/17 20:48 Band Neutrophils % 0 % 11/12/17 20:48 Lymphocytes % (Manual) 4.0 % (13.4-35.0) L 11/12/17 20:48 Reactive Lymphs % (Man) 0 % 11/12/17 20:48 Monocytes % (Manual) 6.0 % (0.0-7.3) 11/12/17 20:48 Eosinophils % (Manual) 2.0 % (0.0-4.3) 11/12/17 20:48 Basophils % (Manual) 0 % (0.0-1.8) 11/12/17 20:48 Metamyelocytes % 0 % 11/12/17 20:48 Myelocytes % 0 % 11/12/17 20:48 Promyelocytes % 0 % 11/12/17 20:48 Blast Cells % 0 % 11/12/17 20:48 Nucleated RBC % Not Reportable 11/12/17 20:48 Seg Neutrophils # 10.5 K/mm3 (1.8-7.7) H 11/14/17 05:23 Seg Neutrophils # Man 12.8 K/mm3 (1.8-7.7) H 11/12/17 20:48 Band Neutrophils # 0.0 K/mm3 11/12/17 20:48 Lymphocytes # (Manual) 0.6 K/mm3 (1.2-5.4) L 11/12/17 20:48 Abs React Lymphs (Man) 0.0 K/mm3 11/12/17 20:48 Monocytes # (Manual) 0.9 K/mm3 (0.0-0.8) H 11/12/17 20:48 Eosinophils # (Manual) 0.3 K/mm3 (0.0-0.4) 11/12/17 20:48 Basophils # (Manual) 0.0 K/mm3 (0.0-0.1) 11/12/17 20:48 Metamyelocytes # 0.0 K/mm3 11/12/17 20:48 Myelocytes # 0.0 K/mm3 11/12/17 20:48 Promyelocytes # 0.0 K/mm3 11/12/17 20:48 Blast Cells # 0.0 K/mm3 11/12/17 20:48 WBC Morphology Not Reportable 11/12/17 20:48 Hypersegmented Neuts Not Reportable 11/12/17 20:48 Hyposegmented Neuts Not Reportable 11/12/17 20:48 Hypogranular Neuts Not Reportable 11/12/17 20:48 Smudge Cells Not Reportable 11/12/17 20:48 Toxic Granulation Not Reportable 11/12/17 20:48 Toxic Vacuolation Not Reportable 11/12/17 20:48 Dohle Bodies Not Reportable 11/12/17 20:48 Pelger-Huet Anomaly Not Reportable 11/12/17 20:48 Gina Rods Not Reportable 11/12/17 20:48 Platelet Estimate Not Reportable 11/12/17 20:48 Clumped Platelets Not Reportable 11/12/17 20:48 Plt Clumps, EDTA Not Reportable 11/12/17 20:48 Large Platelets Not Reportable 11/12/17 20:48 Giant Platelets Not Reportable 11/12/17 20:48 Platelet Satelliting Not Reportable 11/12/17 20:48 Plt Morphology Comment Not Reportable 11/12/17 20:48 RBC Morphology Normal 11/12/17 20:48 Dimorphic RBCs Not Reportable 11/12/17 20:48 Polychromasia Not Reportable 11/12/17 20:48 Hypochromasia Not Reportable 11/12/17 20:48 Poikilocytosis Not Reportable 11/12/17 20:48 Anisocytosis Not Reportable 11/12/17 20:48 Microcytosis Not Reportable 11/12/17 20:48 Macrocytosis Not Reportable 11/12/17 20:48 Spherocytes Not Reportable 11/12/17 20:48 Pappenheimer Bodies Not Reportable 11/12/17 20:48 Sickle Cells Not Reportable 11/12/17 20:48 Target Cells Not Reportable 11/12/17 20:48 Tear Drop Cells Not Reportable 11/12/17 20:48 Ovalocytes Not Reportable 11/12/17 20:48 Helmet Cells Not Reportable 11/12/17 20:48 [place] Bodies Not Reportable 11/12/17 20:48 [place] Rings Not Reportable 11/12/17 20:48 [place] Cells Not Reportable 11/12/17 20:48 Bite Cells Not Reportable 11/12/17 20:48 Crenated Cell Not Reportable 11/12/17 20:48 Elliptocytes Not Reportable 11/12/17 20:48 Acanthocytes (Spur) Not Reportable 11/12/17 20:48 Rouleaux Not Reportable 11/12/17 20:48 Hemoglobin C Crystals Not Reportable 11/12/17 20:48 Schistocytes Not Reportable 11/12/17 20:48 Malaria parasites Not Reportable 11/12/17 20:48 Pardeep Bodies Not Reportable 11/12/17 20:48 Hem Pathologist Commnt No 11/12/17 20:48 PT 16.1 Sec. (12.2-14.9) H 11/12/17 20:55 INR 1.22 (0.87-1.13) H 11/12/17 20:55 VBG pH 7.436 (7.320-7.420) H 11/12/17 20:55 Sodium 136 mmol/L (137-145) L 11/14/17 05:23 Potassium 3.5 mmol/L (3.6-5.0) L 11/14/17 05:23 Chloride 101.4 mmol/L (98-107) 11/14/17 05:23 Carbon Dioxide 20 mmol/L (22-30) L 11/14/17 05:23 Anion Gap 18 mmol/L 11/14/17 05:23 BUN 12 mg/dL (9-20) 11/14/17 05:23 Creatinine 1.1 mg/dL (0.8-1.5) 11/14/17 05:23 Estimated GFR > 60 ml/min 11/14/17 05:23 BUN/Creatinine Ratio 11 % 11/14/17 05:23 Glucose 94 mg/dL (75-100) 11/14/17 05:23 Lactic Acid 1.00 mmol/L (0.7-2.0) 11/12/17 23:16 Calcium 8.5 mg/dL (8.4-10.2) 11/14/17 05:23 Phosphorus 2.20 mg/dL (2.5-4.5) L 11/14/17 05:23 Magnesium 1.50 mg/dL (1.7-2.3) L 11/14/17 05:23 Total Bilirubin 6.20 mg/dL (0.1-1.2) H 11/14/17 05:23 AST 63 units/L (5-40) H 11/14/17 05:23 ALT 143 units/L (7-56) H 11/14/17 05:23 Alkaline Phosphatase 131 units/L (35-129) H 11/14/17 05:23 Troponin T < 0.010 ng/mL (0.00-0.029) 11/12/17 20:48 Total Protein 6.4 g/dL (6.3-8.2) 06/09/18 05:23 Albumin 3.3 g/dL (3.9-5) L 11/14/17 05:23 Albumin/Globulin Ratio 1.1 % 11/14/17 05:23 Urine Color Lakshmi (Yellow) 11/13/17 03:22 Urine Turbidity Slightly cloudy (Clear) 11/13/17 03:22 Urine pH 5.0 (5.0-7.0) 11/13/17 03:22 Ur Specific [place] 1.030 (1.003-1.030) 11/13/17 03:22 Urine Protein 100 mg/dl mg/dL (Negative) 11/13/17 03:22 Urine Glucose (UA) Neg mg/dL (Negative) 11/13/17 03:22 Urine Ketones Tr mg/dL (Negative) 11/13/17 03:22 Urine Blood Mod (Negative) 11/13/17 03:22 Urine Nitrite Neg (Negative) 11/13/17 03:22 Urine Bilirubin Sm (Negative) 11/13/17 03:22 Urine Ictotest Positive (Negative) 11/13/17 03:22 Urine Urobilinogen 4.0 mg/dL (<2.0) 11/13/17 03:22 Ur Leukocyte Esterase Mod (Negative) 11/13/17 03:22 Urine WBC (Auto) 91.0 /HPF (0.0-6.0) H 11/13/17 03:22 Urine RBC (Auto) 4.0 /HPF (0.0-6.0) 11/13/17 03:22 U Epithel Cells (Auto) 1.0 /HPF (0-13.0) 11/13/17 03:22 Hyaline Casts 29 /LPF 11/13/17 03:22 Granular Casts 5 /LPF 11/13/17 03:22 Urine Mucus 1+ /HPF 11/13/17 03:22 Urine Opiates Screen Presumptive negative 11/13/17 09:58 Urine Methadone Screen Presumptive negative 11/13/17 09:58 Acetaminophen < 5.0 ug/mL (10.0-30.0) L 11/12/17 22:14 Ur Barbiturates Screen Presumptive negative 11/13/17 09:58 Ur Phencyclidine Scrn Presumptive negative 11/13/17 09:58 Ur Amphetamines Screen Presumptive negative 11/13/17 09:58 U Benzodiazepines Scrn Presumptive negative 11/13/17 09:58 Urine Cocaine Screen Presumptive negative 11/13/17 09:58 U Marijuana (THC) Screen Presumptive positive 11/13/17 09:58 Drugs of Abuse Note Disclamer 11/13/17 09:58 Hepatitis A IgM Ab Non-reactive (NonReactive) 11/12/17 22:17 Hep Bs Antigen Non-reactive (Negative) 11/12/17 22:17 Hep B Core IgM Ab Non-reactive (NonReactive) 11/12/17 22:17 Hepatitis C Antibody Non-reactive (NonReactive) 11/12/17 22:17 Influenza A (Rapid) Negative (Negative) 11/12/17 22:40 Influenza B (Rapid) Negative (Negative) 11/12/17 22:40
[2017-11-14] MEDS: TORADOL IV PRN ×2 (13:07→23:09)
[2017-11-14] MEDS: TYLENOL PO PRN ×2 (13:07→22:51)
--- NOTE | 2017-11-14 13:51 | Gastroenterology Progress Note ---
Assessment and Plan 1. Acute liver injury - unclear etiology. occurred in setting of RIAZ/viral like symptoms. work-up pending, will also check mono, r/o HIV/HSV. no obstructive signs on US, but consider MRCP if t bili remains elevated for further characterization of bile ducts. counseled on alcohol cessation. trend daily liver enzymes. if remains elevated, consider liver biopsy but supportive care for time being. Subjective Date of service: 11/14/17 Principal diagnosis: elevated liver enzymes Interval history: pt seen and examined. continues to have diffuse muscle aches, fatigue, upper respiratory infections, sore throat. poor po intake. reports occasional alcohol abuse but not consistently. denies iv drugs or sick contacts. Objective - Constitutional Vitals: Temp Pulse Resp BP Pulse Ox 99.9 F H 112 H 20 115/61 96 11/14/17 07:42 11/14/17 07:42 11/14/17 07:42 11/14/17 07:42 11/14/17 07:42 General appearance: no acute distress, other (overweight) - Neck Neck: supple, normal ROM - Respiratory Respiratory effort: normal Respiratory: bilateral: CTA - Cardiovascular Rhythm: regular Heart Sounds: Present: S1 & S2 - Gastrointestinal General gastrointestinal: Present: soft, non-tender, non-distended - Neurologic Neurological: alert and oriented x3 - Labs CBC & Chem 7: 11/14/17 05:23 11/14/17 05:23 Labs: Laboratory Results - last 24 hr 11/13/17 11/14/17 11/14/17 09:58 05:23 05:23 WBC 12.4 H RBC 4.55 Hgb 13.0 Hct 38.7 MCV 85 MCH 29 MCHC 34 RDW 14.5 Plt Count 128 L Lymph % (Auto) 4.0 L [place] % (Auto) 7.9 H Eos % (Auto) 3.4 Baso % (Auto) 0.4 Lymph # 0.5 L [place] # 1.0 H Eos # 0.4 Baso # 0.0 Seg Neutrophils % 84.3 H Seg Neutrophils # 10.5 H Sodium 136 L Potassium 3.5 L Chloride 101.4 Carbon Dioxide 20 L Anion Gap 18 BUN 12 Creatinine 1.1 Estimated GFR > 60 BUN/Creatinine Ratio 11 Glucose 94 Calcium 8.5 Phosphorus 2.20 L Magnesium 1.50 L Total Bilirubin 6.20 H AST 63 H ALT 143 H Alkaline Phosphatase 131 H Total Protein 6.4 Albumin 3.3 L Albumin/Globulin Ratio 1.1 Urine Opiates Screen Presumptive negative Urine Methadone Screen Presumptive negative Ur Barbiturates Screen Presumptive negative Ur Phencyclidine Scrn Presumptive negative Ur Amphetamines Screen Presumptive negative U Benzodiazepines Scrn Presumptive negative Urine Cocaine Screen Presumptive negative U Marijuana (THC) Screen Presumptive positive Drugs of Abuse Note Disclamer Monoscreen HIV 1&2 Antibody Rapid HIV P24 Antigen 11/14/17 11/14/17 12:23 12:29 WBC RBC Hgb Hct MCV MCH MCHC RDW Plt Count Lymph % (Auto) [place] % (Auto) Eos % (Auto) Baso % (Auto) Lymph # [place] # Eos # Baso # Seg Neutrophils % Seg Neutrophils # Sodium Potassium Chloride Carbon Dioxide Anion Gap BUN Creatinine Estimated GFR BUN/Creatinine Ratio Glucose Calcium Phosphorus Magnesium Total Bilirubin AST ALT Alkaline Phosphatase Total Protein Albumin Albumin/Globulin Ratio Urine Opiates Screen Urine Methadone Screen Ur Barbiturates Screen Ur Phencyclidine Scrn Ur Amphetamines Screen U Benzodiazepines Scrn Urine Cocaine Screen U Marijuana (THC) Screen Drugs of Abuse Note Monoscreen Negative HIV 1&2 Antibody Rapid Non react HIV P24 Antigen Non react - Imaging CT scan: report reviewed Ultrasound: report reviewed
[2017-11-14] MEDS ORDERED: K-DUR PO ONE (19:45)
[2017-11-14] MEDS ORDERED: MAGNESIUM SULFATE 2GM/50ML 2 GM/50 ML BAG IV ONE (19:46)
[2017-11-15] MEDS: NACL 0.9% 1000 ML 1,000 ML IV SCH (05:59)
[2017-11-15 09:16] LABS: Hematocrit 37.7 % (35.5-45.6); Hemoglobin 12.8 gm/dl (11.8-15.2); Mean Corpuscular HGB Conc 34 % (32-34); Mean Corpuscular Hemoglobin 29 pg (28-32); Mean Corpuscular Volume 84 fl (84-94); Platelet Count 123 K/mm3 (140-440); Red Blood Count 4.47 M/mm3 (3.65-5.03); Red Cell Distribution Width 14.4 % (13.2-15.2)
[2017-11-15] MEDS: HEPARIN SUB-Q SCH ×2 (09:16→21:34)
[2017-11-15] MEDS: PEPCID PO SCH ×2 (09:16→21:34)
[2017-11-15] MEDS: LEVAQUIN 750MG/150ML 750 MG/150 ML BAG IV SCH (09:16)
[2017-11-15 09:43] LABS: Alanine Aminotransferase 123 units/L (7-56); BUN/Creatinine Ratio 12; Blood Urea Nitrogen 11 mg/dL (9-20); Calcium 9.1 mg/dL (8.4-10.2); Hemolysis Index 0
[2017-11-15 10:18] LABS: Band Neutrophils # (Manual) 0.5 K/mm3; Basophils % (Manual) 0 % (0.0-1.8); Total Cells Counted 100
[2017-11-15 10:19] LABS: Platelet Estimate Consistent w Auto
--- NOTE | 2017-11-15 10:46 | Progress Note ---
Assessment and Plan Assessment and plan: --hypophosphatemia; replenished per protocol and monitor level --Epistaxis; mild,nose pack as needed, supportive care Check PT/INR, monitor H&H --Febrile illness; possible viral syndrome Fevers trending down, continue antipyretics, empiric antibiotics Follow cultures, IV fluids and supportive care --Acute liver injury; with transaminitis; Hepatitis panel negative, closely monitor, GI following --Hyper bilirubinemia; worsening, GI following, possible MRCP, supportive care --Hypomagnesemia/hypokalemia; corrected --Moderate malnutrition/hypoalbuminemia; nutrition supplements and supportive care --DVT prophylaxis with Lovenox Closely monitor the patient and adjust management as needed Plan of care reviewed with the patient and his nurse History Interval history: Patient seen and examined medical records reviewed Complaints of generalized weakness, some epistaxis As a complaints of headache and intermittent Low-grade fever Vital signs reviewed Hospitalist Physical - Constitutional Vitals: Temp Pulse Resp BP Pulse Ox 97.8 F 107 H 20 136/89 96 11/15/17 07:23 11/15/17 07:23 11/15/17 07:23 11/15/17 07:23 11/15/17 07:23 General appearance: Present: mild distress, well-nourished, obese - EENT Eyes: Present: PERRL, EOM intact, scleral icterus - Neck Neck: Present: supple, normal ROM - Respiratory Respiratory effort: normal Respiratory: bilateral: diminished, negative: rales, rhonchi, wheezing - Cardiovascular Rhythm: regular Heart Sounds: Present: S1 & S2 - Extremities Extremities: no ischemia, No edema - Abdominal General gastrointestinal: soft, non-tender, non-distended, normal bowel sounds - Integumentary Integumentary: Present: clear, warm, jaundice - Psychiatric Psychiatric: appropriate mood/affect, cooperative - Neurologic Neurologic: CNII-XII intact, moves all extremities Results - Labs CBC & Chem 7: 11/15/17 09:00 11/15/17 09:00 Labs: Laboratory Last Values WBC 17.8 K/mm3 (4.5-11.0) H 11/15/17 09:00 RBC 4.47 M/mm3 (3.65-5.03) 11/15/17 09:00 Hgb 12.8 gm/dl (11.8-15.2) 11/15/17 09:00 Hct 37.7 % (35.5-45.6) 11/15/17 09:00 MCV 84 fl (84-94) 11/15/17 09:00 MCH 29 pg (28-32) 11/15/17 09:00 MCHC 34 % (32-34) 11/15/17 09:00 RDW 14.4 % (13.2-15.2) 11/15/17 09:00 Plt Count 123 K/mm3 (140-440) L 11/15/17 09:00 Lymph % (Auto) 4.0 % (13.4-35.0) L 11/14/17 05:23 [place] % (Auto) 7.9 % (0.0-7.3) H 11/14/17 05:23 Eos % (Auto) 3.4 % (0.0-4.3) 11/14/17 05:23 Baso % (Auto) 0.4 % (0.0-1.8) 11/14/17 05:23 Lymph # 0.5 K/mm3 (1.2-5.4) L 11/14/17 05:23 [place] # 1.0 K/mm3 (0.0-0.8) H 11/14/17 05:23 Eos # 0.4 K/mm3 (0.0-0.4) 11/14/17 05:23 Baso # 0.0 K/mm3 (0.0-0.1) 11/14/17 05:23 Add Manual Diff Complete 11/15/17 09:00 Total Counted 100 11/15/17 09:00 Seg Neutrophils % 84.3 % (40.0-70.0) H 11/14/17 05:23 Seg Neuts % (Manual) 83.0 % (40.0-70.0) H 11/15/17 09:00 Band Neutrophils % 3.0 % 11/15/17 09:00 Lymphocytes % (Manual) 6.0 % (13.4-35.0) L 11/15/17 09:00 Reactive Lymphs % (Man) 0 % 11/15/17 09:00 Monocytes % (Manual) 5.0 % (0.0-7.3) 11/15/17 09:00 Eosinophils % (Manual) 3.0 % (0.0-4.3) 11/15/17 09:00 Basophils % (Manual) 0 % (0.0-1.8) 11/15/17 09:00 Metamyelocytes % 0 % 11/15/17 09:00 Myelocytes % 0 % 11/15/17 09:00 Promyelocytes % 0 % 11/15/17 09:00 Blast Cells % 0 % 11/15/17 09:00 Nucleated RBC % Not Reportable 11/15/17 09:00 Seg Neutrophils # 10.5 K/mm3 (1.8-7.7) H 11/14/17 05:23 Seg Neutrophils # Man 14.8 K/mm3 (1.8-7.7) H 11/15/17 09:00 Band Neutrophils # 0.5 K/mm3 11/15/17 09:00 Lymphocytes # (Manual) 1.1 K/mm3 (1.2-5.4) L 11/15/17 09:00 Abs React Lymphs (Man) 0.0 K/mm3 11/15/17 09:00 Monocytes # (Manual) 0.9 K/mm3 (0.0-0.8) H 11/15/17 09:00 Eosinophils # (Manual) 0.5 K/mm3 (0.0-0.4) H 11/15/17 09:00 Basophils # (Manual) 0.0 K/mm3 (0.0-0.1) 11/15/17 09:00 Metamyelocytes # 0.0 K/mm3 11/15/17 09:00 Myelocytes # 0.0 K/mm3 11/15/17 09:00 Promyelocytes # 0.0 K/mm3 11/15/17 09:00 Blast Cells # 0.0 K/mm3 11/15/17 09:00 WBC Morphology Not Reportable 11/15/17 09:00 Hypersegmented Neuts Not Reportable 11/15/17 09:00 Hyposegmented Neuts Not Reportable 11/15/17 09:00 Hypogranular Neuts Not Reportable 11/15/17 09:00 Smudge Cells Not Reportable 11/15/17 09:00 Toxic Granulation Not Reportable 11/15/17 09:00 Toxic Vacuolation Not Reportable 11/15/17 09:00 Dohle Bodies Not Reportable 11/15/17 09:00 Pelger-Huet Anomaly Not Reportable 11/15/17 09:00 Gina Rods Not Reportable 11/15/17 09:00 Platelet Estimate Consistent w auto 11/15/17 09:00 Clumped Platelets Not Reportable 11/15/17 09:00 Plt Clumps, EDTA Not Reportable 11/15/17 09:00 Large Platelets Not Reportable 11/15/17 09:00 Giant Platelets Not Reportable 11/15/17 09:00 Platelet Satelliting Not Reportable 11/15/17 09:00 Plt Morphology Comment Not Reportable 11/15/17 09:00 RBC Morphology Not Reportable 11/15/17 09:00 Dimorphic RBCs Not Reportable 11/15/17 09:00 Polychromasia Not Reportable 11/15/17 09:00 Hypochromasia Not Reportable 11/15/17 09:00 Poikilocytosis Not Reportable 11/15/17 09:00 Anisocytosis Not Reportable 11/15/17 09:00 Microcytosis Not Reportable 11/15/17 09:00 Macrocytosis Not Reportable 11/15/17 09:00 Spherocytes Not Reportable 11/15/17 09:00 Pappenheimer Bodies Not Reportable 11/15/17 09:00 Sickle Cells Not Reportable 11/15/17 09:00 Target Cells Not Reportable 11/15/17 09:00 Tear Drop Cells Not Reportable 11/15/17 09:00 Ovalocytes Not Reportable 11/15/17 09:00 Helmet Cells Not Reportable 11/15/17 09:00 [place] Bodies Not Reportable 11/15/17 09:00 [place] Rings Not Reportable 11/15/17 09:00 [place] Cells Not Reportable 11/15/17 09:00 Bite Cells Not Reportable 11/15/17 09:00 Crenated Cell Not Reportable 11/15/17 09:00 Elliptocytes Not Reportable 11/15/17 09:00 Acanthocytes (Spur) Not Reportable 11/15/17 09:00 Rouleaux Not Reportable 11/15/17 09:00 Hemoglobin C Crystals Not Reportable 11/15/17 09:00 Schistocytes Not Reportable 11/15/17 09:00 Malaria parasites Not Reportable 11/15/17 09:00 Pardeep Bodies Not Reportable 11/15/17 09:00 Hem Pathologist Commnt No 11/15/17 09:00 PT 16.1 Sec. (12.2-14.9) H 11/12/17 20:55 INR 1.22 (0.87-1.13) H 11/12/17 20:55 VBG pH 7.436 (7.320-7.420) H 11/12/17 20:55 Sodium 138 mmol/L (137-145) 11/15/17 09:00 Potassium 3.9 mmol/L (3.6-5.0) 11/15/17 09:00 Chloride 102.8 mmol/L (98-107) 11/15/17 09:00 Carbon Dioxide 22 mmol/L (22-30) 11/15/17 09:00 Anion Gap 17 mmol/L 11/15/17 09:00 BUN 11 mg/dL (9-20) 11/15/17 09:00 Creatinine 0.9 mg/dL (0.8-1.5) 11/15/17 09:00 Estimated GFR > 60 ml/min 11/15/17 09:00 BUN/Creatinine Ratio 12 % 11/15/17 09:00 Glucose 94 mg/dL (75-100) 11/15/17 09:00 Lactic Acid 1.00 mmol/L (0.7-2.0) 11/12/17 23:16 Calcium 9.1 mg/dL (8.4-10.2) 11/15/17 09:00 Phosphorus 1.60 mg/dL (2.5-4.5) L D 11/15/17 09:00 Magnesium 2.00 mg/dL (1.7-2.3) 11/15/17 09:00 Total Bilirubin 8.00 mg/dL (0.1-1.2) H 11/15/17 09:00 AST 58 units/L (5-40) H 11/15/17 09:00 ALT 123 units/L (7-56) H 11/15/17 09:00 Alkaline Phosphatase 135 units/L (35-129) H 11/15/17 09:00 Troponin T < 0.010 ng/mL (0.00-0.029) 11/12/17 20:48 Total Protein 6.3 g/dL (6.3-8.2) 11/15/17 09:00 Albumin 3.0 g/dL (3.9-5) L 11/15/17 09:00 Albumin/Globulin Ratio 0.9 % 11/15/17 09:00 Urine Color Lakshmi (Yellow) 11/13/17 03:22 Urine Turbidity Slightly cloudy (Clear) 11/13/17 03:22 Urine pH 5.0 (5.0-7.0) 11/13/17 03:22 Ur Specific [place] 1.030 (1.003-1.030) 11/13/17 03:22 Urine Protein 100 mg/dl mg/dL (Negative) 11/13/17 03:22 Urine Glucose (UA) Neg mg/dL (Negative) 11/13/17 03:22 Urine Ketones Tr mg/dL (Negative) 11/13/17 03:22 Urine Blood Mod (Negative) 11/13/17 03:22 Urine Nitrite Neg (Negative) 11/13/17 03:22 Urine Bilirubin Sm (Negative) 11/13/17 03:22 Urine Ictotest Positive (Negative) 11/13/17 03:22 Urine Urobilinogen 4.0 mg/dL (<2.0) 11/13/17 03:22 Ur Leukocyte Esterase Mod (Negative) 11/13/17 03:22 Urine WBC (Auto) 91.0 /HPF (0.0-6.0) H 11/13/17 03:22 Urine RBC (Auto) 4.0 /HPF (0.0-6.0) 11/13/17 03:22 U Epithel Cells (Auto) 1.0 /HPF (0-13.0) 11/13/17 03:22 Hyaline Casts 29 /LPF 11/13/17 03:22 Granular Casts 5 /LPF 11/13/17 03:22 Urine Mucus 1+ /HPF 11/13/17 03:22 Urine Opiates Screen Presumptive negative 11/13/17 09:58 Urine Methadone Screen Presumptive negative 11/13/17 09:58 Acetaminophen < 5.0 ug/mL (10.0-30.0) L 11/12/17 22:14 Ur Barbiturates Screen Presumptive negative 11/13/17 09:58 Ur Phencyclidine Scrn Presumptive negative 11/13/17 09:58 Ur Amphetamines Screen Presumptive negative 11/13/17 09:58 U Benzodiazepines Scrn Presumptive negative 11/13/17 09:58 Urine Cocaine Screen Presumptive negative 11/13/17 09:58 U Marijuana (THC) Screen Presumptive positive 11/13/17 09:58 Drugs of Abuse Note Disclamer 11/13/17 09:58 Hepatitis A IgM Ab Non-reactive (NonReactive) 11/12/17 22:17 Hep Bs Antigen Non-reactive (Negative) 11/12/17 22:17 Hep B Core IgM Ab Non-reactive (NonReactive) 11/12/17 22:17 Hepatitis C Antibody Non-reactive (NonReactive) 11/12/17 22:17 Monoscreen Negative (Negative) 11/14/17 12:23 HIV 1&2 Antibody Rapid Non react (Non React) 11/14/17 12:29 HIV P24 Antigen Non react (Non React) 11/14/17 12:29 Influenza A (Rapid) Negative (Negative) 11/12/17 22:40 Influenza B (Rapid) Negative (Negative) 11/12/17 22:40
[2017-11-15] MEDS ORDERED: KPHOS 40 MMOL in NACL 0.9% 500 ML 500 ML IV ONE (11:00)
--- NOTE | 2017-11-15 11:08 | Gastroenterology Progress Note ---
Assessment and Plan 1. Acute liver injury - pt with mixed pattern of liver enzyme elevation; cholestatic levels increasing. etiology remains unclear. MRCP ordered to rule out obstructive process or other liver/biliary pathology. consider alc hep given pattern although ALT > AST atypical. supportive care for time being. also with UTI and is on abx. further recommendations following trend of labs and MRCP results. may need to consider liver biopsy. Subjective Date of service: 11/15/17 Principal diagnosis: elevated liver enzymes Interval history: pt seen and examined. continues to feel unwell. generalized weakness/fatigue, URI symptoms, sore throat. admits to drinking frequent tequila for months prior to admission (~4 days per week). heavy drinking for the past 6 months or so. Objective - Constitutional Vitals: Temp Pulse Resp BP Pulse Ox 97.8 F 107 H 20 136/89 96 11/15/17 07:23 11/15/17 07:23 11/15/17 07:23 11/15/17 07:23 11/15/17 07:23 General appearance: no acute distress, other (overweight male) - EENT Eyes: scleral icterus - Respiratory Respiratory effort: normal Respiratory: bilateral: CTA - Cardiovascular Rhythm: regular Heart Sounds: Present: S1 & S2 - Extremities Extremities: No edema, Full ROM - Gastrointestinal General gastrointestinal: Present: soft, non-tender, non-distended - Neurologic Neurological: alert and oriented x3 - Psychiatric Psychiatric: appropriate mood/affect - Labs CBC & Chem 7: 11/15/17 09:00 11/15/17 09:00 Labs: Laboratory Results - last 24 hr 11/14/17 11/14/17 11/15/17 12:23 12:29 09:00 WBC 17.8 H RBC 4.47 Hgb 12.8 Hct 37.7 MCV 84 MCH 29 MCHC 34 RDW 14.4 Plt Count 123 L Add Manual Diff Complete Total Counted 100 Seg Neuts % (Manual) 83.0 H Band Neutrophils % 3.0 Lymphocytes % (Manual) 6.0 L Reactive Lymphs % (Man) 0 Monocytes % (Manual) 5.0 Eosinophils % (Manual) 3.0 Basophils % (Manual) 0 Metamyelocytes % 0 Myelocytes % 0 Promyelocytes % 0 Blast Cells % 0 Nucleated RBC % Not Reportable Seg Neutrophils # Man 14.8 H Band Neutrophils # 0.5 Lymphocytes # (Manual) 1.1 L Abs React Lymphs (Man) 0.0 Monocytes # (Manual) 0.9 H Eosinophils # (Manual) 0.5 H Basophils # (Manual) 0.0 Metamyelocytes # 0.0 Myelocytes # 0.0 Promyelocytes # 0.0 Blast Cells # 0.0 WBC Morphology Not Reportable Hypersegmented Neuts Not Reportable Hyposegmented Neuts Not Reportable Hypogranular Neuts Not Reportable Smudge Cells Not Reportable Toxic Granulation Not Reportable Toxic Vacuolation Not Reportable Dohle Bodies Not Reportable Pelger-Huet Anomaly Not Reportable Gina Rods Not Reportable Platelet Estimate Consistent w auto Clumped Platelets Not Reportable Plt Clumps, EDTA Not Reportable Large Platelets Not Reportable Giant Platelets Not Reportable Platelet Satelliting Not Reportable Plt Morphology Comment Not Reportable RBC Morphology Not Reportable Dimorphic RBCs Not Reportable Polychromasia Not Reportable Hypochromasia Not Reportable Poikilocytosis Not Reportable Anisocytosis Not Reportable Microcytosis Not Reportable Macrocytosis Not Reportable Spherocytes Not Reportable Pappenheimer Bodies Not Reportable Sickle Cells Not Reportable Target Cells Not Reportable Tear Drop Cells Not Reportable Ovalocytes Not Reportable Helmet Cells Not Reportable [place] Bodies Not Reportable [place] Rings Not Reportable [place] Cells Not Reportable Bite Cells Not Reportable Crenated Cell Not Reportable Elliptocytes Not Reportable Acanthocytes (Spur) Not Reportable Rouleaux Not Reportable Hemoglobin C Crystals Not Reportable Schistocytes Not Reportable Malaria parasites Not Reportable Pardeep Bodies Not Reportable Hem Pathologist Commnt No Sodium Potassium Chloride Carbon Dioxide Anion Gap BUN Creatinine Estimated GFR BUN/Creatinine Ratio Glucose Calcium Phosphorus Magnesium Total Bilirubin AST ALT Alkaline Phosphatase Total Protein Albumin Albumin/Globulin Ratio Monoscreen Negative HIV 1&2 Antibody Rapid Non react HIV P24 Antigen Non react 11/15/17 09:00 WBC RBC Hgb Hct MCV MCH MCHC RDW Plt Count Add Manual Diff Total Counted Seg Neuts % (Manual) Band Neutrophils % Lymphocytes % (Manual) Reactive Lymphs % (Man) Monocytes % (Manual) Eosinophils % (Manual) Basophils % (Manual) Metamyelocytes % Myelocytes % Promyelocytes % Blast Cells % Nucleated RBC % Seg Neutrophils # Man Band Neutrophils # Lymphocytes # (Manual) Abs React Lymphs (Man) Monocytes # (Manual) Eosinophils # (Manual) Basophils # (Manual) Metamyelocytes # Myelocytes # Promyelocytes # Blast Cells # WBC Morphology Hypersegmented Neuts Hyposegmented Neuts Hypogranular Neuts Smudge Cells Toxic Granulation Toxic Vacuolation Dohle Bodies Pelger-Huet Anomaly Gina Rods Platelet Estimate Clumped Platelets Plt Clumps, EDTA Large Platelets Giant Platelets Platelet Satelliting Plt Morphology Comment RBC Morphology Dimorphic RBCs Polychromasia Hypochromasia Poikilocytosis Anisocytosis Microcytosis Macrocytosis Spherocytes Pappenheimer Bodies Sickle Cells Target Cells Tear Drop Cells Ovalocytes Helmet Cells [place] Bodies [place] Rings Usama Cells Bite Cells Crenated Cell Elliptocytes Acanthocytes (Spur) Rouleaux Hemoglobin C Crystals Schistocytes Malaria parasites Pardeep Bodies Hem Pathologist Commnt Sodium 138 Potassium 3.9 Chloride 102.8 Carbon Dioxide 22 Anion Gap 17 BUN 11 Creatinine 0.9 Estimated GFR > 60 BUN/Creatinine Ratio 12 Glucose 94 Calcium 9.1 Phosphorus 1.60 L D Magnesium 2.00 Total Bilirubin 8.00 H AST 58 H ALT 123 H Alkaline Phosphatase 135 H Total Protein 6.3 Albumin 3.0 L Albumin/Globulin Ratio 0.9 Monoscreen HIV 1&2 Antibody Rapid HIV P24 Antigen - Imaging Ultrasound: report reviewed
[2017-11-15] MEDS: TYLENOL PO PRN (16:44)
[2017-11-15] MEDS ORDERED: MOTRIN PO PRN (21:10)
[2017-11-16] MEDS: NACL 0.9% 1000 ML 1,000 ML IV SCH (06:05)
[2017-11-16 10:55] LABS: INR 0.92 (0.87-1.13)
[2017-11-16 11:16] LABS: Albumin 3.1 g/dL (3.9-5); Bilirubin,Direct 6.4 mg/dL (0-0.2); Calcium 9.4 mg/dL (8.4-10.2)
--- NOTE | 2017-11-16 12:03 | Gastroenterology Progress Note ---
Assessment and Plan 1. Acute liver injury - mixed pattern of unclear etiology. MRCP pending to r/o obstructive causes. leukocytosis increasing, on abx, noted to have UTI. alc hep is consideration although ALT > AST atypical. supportive care for time being. further recommendations following trend of labs and MRCP results. may need to consider liver biopsy. Subjective Date of service: 11/16/17 Principal diagnosis: elevated liver enzymes Interval history: pt seen and examined. awaiting mri (he was off the floor yesterday when he was scheduled to have imaging done). symptoms overall unchanged from previous days. Objective - Constitutional Vitals: Temp Pulse Resp BP Pulse Ox 98.3 F 78 18 153/79 99 11/16/17 07:30 11/16/17 07:30 11/16/17 07:30 11/16/17 07:30 11/16/17 07:30 General appearance: no acute distress, obese - Respiratory Respiratory effort: normal Respiratory: bilateral: CTA - Cardiovascular Rhythm: regular Heart Sounds: Present: S1 & S2 - Gastrointestinal General gastrointestinal: Present: soft, non-tender, non-distended - Neurologic Neurological: alert and oriented x3 - Psychiatric Psychiatric: appropriate mood/affect - Labs CBC & Chem 7: 11/15/17 09:00 11/15/17 09:00 Labs: Laboratory Results - last 24 hr 11/16/17 11/16/17 09:45 09:45 PT 12.8 INR 0.92 Calcium 9.4 Phosphorus 2.90 D Total Bilirubin 7.90 H Direct Bilirubin 6.4 H Indirect Bilirubin 1.5 AST 77 H ALT 125 H Alkaline Phosphatase 136 H Total Protein 6.7 Albumin 3.1 L Albumin/Globulin Ratio 0.9
[2017-11-16] MEDS: PEPCID PO SCH ×2 (13:19→21:28)
[2017-11-16] MEDS: HEPARIN SUB-Q SCH ×2 (13:19→21:28)
[2017-11-16] MEDS: LEVAQUIN 750MG/150ML 750 MG/150 ML BAG IV SCH (15:01)
--- NOTE | 2017-11-16 18:23 | Magnetic Resonance Report ---
FINAL REPORT EXAM: MR ABDOMEN MRCP HISTORY: jaundice TECHNIQUE: MRI was performed of the abdomen using the following pulse sequences: Axial: 2D FIESTA, dual echo Coronal: 2D FIESTA, T1 FS PGR T2 3D weighted MRCP PRIORS: None. FINDINGS: The gallbladder is distended but otherwise unremarkable. There is no biliary dilatation but the common bile duct is not well demonstrated. The pancreatic duct is not dilated but also not well demonstrated on the MRCP. The liver, spleen, pancreas and kidneys appear normal. There are no abnormal fluid collections. There are no abnormally dilated bowel. IMPRESSION: 1. Distended but otherwise normal appearing gallbladder 2. Incomplete evaluation of the biliary tree. There is no biliary dilatation however, common bile duct and pancreatic ducts are not well demonstrated. Recommend further evaluation with CT.
--- NOTE | 2017-11-16 19:20 | Progress Note ---
Assessment and Plan Assessment and plan: 27-year-old obese male patient with no significant past medical history Was admitted with fever and viral syndrome-like picture, Continues to have fever , on empiric antibiotics, influenza, hepatitis, HIV, mono negative --Febrile illness; possible viral syndrome Fevers trending down, continue antipyretics, empiric antibiotics Follow cultures, IV fluids and supportive care, consider ID evaluation if needed Influenza, hepatitis, mono screen, HIV are negative --Acute liver injury; with transaminitis;,hyperbilirubinemia Hepatitis panel negative, scheduled for MRCP today --Hypomagnesemia/hypokalemia; corrected --Moderate malnutrition/hypoalbuminemia; nutrition supplements and supportive care --DVT prophylaxis with Lovenox GI evaluation and recommendations noted Closely monitor the patient for MRCP, possible liver biopsy per GI Plan of care reviewed with the patient, family members at the bedside and the nurse History Interval history: Patient seen and examined medical records reviewed Patient remains febrile intermittent, feels slightly better LFTs still elevated with hyperbilirubinemia Scheduled for MRCP today Hospitalist Physical - Constitutional Vitals: Temp Pulse Resp BP Pulse Ox 99.8 F H 99 H 20 125/67 99 11/16/17 15:24 11/16/17 15:24 11/16/17 15:24 11/16/17 15:24 11/16/17 15:24 General appearance: Present: no acute distress, well-nourished, obese - EENT Eyes: Present: PERRL, EOM intact, scleral icterus - Neck Neck: Present: supple, normal ROM - Respiratory Respiratory effort: normal Respiratory: bilateral: diminished, negative: rales, rhonchi, wheezing - Cardiovascular Rhythm: regular Heart Sounds: Present: S1 & S2 - Extremities Extremities: no ischemia, No edema Peripheral Pulses: within normal limits - Abdominal General gastrointestinal: soft, non-tender, non-distended, normal bowel sounds - Integumentary Integumentary: Present: clear, warm, jaundice - Psychiatric Psychiatric: appropriate mood/affect, cooperative - Neurologic Neurologic: CNII-XII intact, moves all extremities Results - Labs CBC & Chem 7: 11/15/17 09:00 11/15/17 09:00 Labs: Laboratory Last Values WBC 17.8 K/mm3 (4.5-11.0) H 11/15/17 09:00 RBC 4.47 M/mm3 (3.65-5.03) 11/15/17 09:00 Hgb 12.8 gm/dl (11.8-15.2) 11/15/17 09:00 Hct 37.7 % (35.5-45.6) 11/15/17 09:00 MCV 84 fl (84-94) 11/15/17 09:00 MCH 29 pg (28-32) 11/15/17 09:00 MCHC 34 % (32-34) 11/15/17 09:00 RDW 14.4 % (13.2-15.2) 11/15/17 09:00 Plt Count 123 K/mm3 (140-440) L 11/15/17 09:00 Lymph % (Auto) 4.0 % (13.4-35.0) L 11/14/17 05:23 Grainger % (Auto) 7.9 % (0.0-7.3) H 11/14/17 05:23 Eos % (Auto) 3.4 % (0.0-4.3) 11/14/17 05:23 Baso % (Auto) 0.4 % (0.0-1.8) 11/14/17 05:23 Lymph # 0.5 K/mm3 (1.2-5.4) L 11/14/17 05:23 Grainger # 1.0 K/mm3 (0.0-0.8) H 11/14/17 05:23 Eos # 0.4 K/mm3 (0.0-0.4) 11/14/17 05:23 Baso # 0.0 K/mm3 (0.0-0.1) 11/14/17 05:23 Add Manual Diff Complete 11/15/17 09:00 Total Counted 100 11/15/17 09:00 Seg Neutrophils % 84.3 % (40.0-70.0) H 11/14/17 05:23 Seg Neuts % (Manual) 83.0 % (40.0-70.0) H 11/15/17 09:00 Band Neutrophils % 3.0 % 11/15/17 09:00 Lymphocytes % (Manual) 6.0 % (13.4-35.0) L 11/15/17 09:00 Reactive Lymphs % (Man) 0 % 11/15/17 09:00 Monocytes % (Manual) 5.0 % (0.0-7.3) 11/15/17 09:00 Eosinophils % (Manual) 3.0 % (0.0-4.3) 11/15/17 09:00 Basophils % (Manual) 0 % (0.0-1.8) 11/15/17 09:00 Metamyelocytes % 0 % 11/15/17 09:00 Myelocytes % 0 % 11/15/17 09:00 Promyelocytes % 0 % 11/15/17 09:00 Blast Cells % 0 % 11/15/17 09:00 Nucleated RBC % Not Reportable 11/15/17 09:00 Seg Neutrophils # 10.5 K/mm3 (1.8-7.7) H 11/14/17 05:23 Seg Neutrophils # Man 14.8 K/mm3 (1.8-7.7) H 11/15/17 09:00 Band Neutrophils # 0.5 K/mm3 11/15/17 09:00 Lymphocytes # (Manual) 1.1 K/mm3 (1.2-5.4) L 11/15/17 09:00 Abs React Lymphs (Man) 0.0 K/mm3 11/15/17 09:00 Monocytes # (Manual) 0.9 K/mm3 (0.0-0.8) H 11/15/17 09:00 Eosinophils # (Manual) 0.5 K/mm3 (0.0-0.4) H 11/15/17 09:00 Basophils # (Manual) 0.0 K/mm3 (0.0-0.1) 11/15/17 09:00 Metamyelocytes # 0.0 K/mm3 11/15/17 09:00 Myelocytes # 0.0 K/mm3 11/15/17 09:00 Promyelocytes # 0.0 K/mm3 11/15/17 09:00 Blast Cells # 0.0 K/mm3 11/15/17 09:00 WBC Morphology Not Reportable 11/15/17 09:00 Hypersegmented Neuts Not Reportable 11/15/17 09:00 Hyposegmented Neuts Not Reportable 11/15/17 09:00 Hypogranular Neuts Not Reportable 11/15/17 09:00 Smudge Cells Not Reportable 11/15/17 09:00 Toxic Granulation Not Reportable 11/15/17 09:00 Toxic Vacuolation Not Reportable 11/15/17 09:00 Dohle Bodies Not Reportable 11/15/17 09:00 Pelger-Huet Anomaly Not Reportable 11/15/17 09:00 Gina Rods Not Reportable 11/15/17 09:00 Platelet Estimate Consistent w auto 11/15/17 09:00 Clumped Platelets Not Reportable 11/15/17 09:00 Plt Clumps, EDTA Not Reportable 11/15/17 09:00 Large Platelets Not Reportable 11/15/17 09:00 Giant Platelets Not Reportable 11/15/17 09:00 Platelet Satelliting Not Reportable 11/15/17 09:00 Plt Morphology Comment Not Reportable 11/15/17 09:00 RBC Morphology Not Reportable 11/15/17 09:00 Dimorphic RBCs Not Reportable 11/15/17 09:00 Polychromasia Not Reportable 11/15/17 09:00 Hypochromasia Not Reportable 11/15/17 09:00 Poikilocytosis Not Reportable 11/15/17 09:00 Anisocytosis Not Reportable 11/15/17 09:00 Microcytosis Not Reportable 11/15/17 09:00 Macrocytosis Not Reportable 11/15/17 09:00 Spherocytes Not Reportable 11/15/17 09:00 Pappenheimer Bodies Not Reportable 11/15/17 09:00 Sickle Cells Not Reportable 11/15/17 09:00 Target Cells Not Reportable 11/15/17 09:00 Tear Drop Cells Not Reportable 11/15/17 09:00 Ovalocytes Not Reportable 11/15/17 09:00 Helmet Cells Not Reportable 11/15/17 09:00 [place] Bodies Not Reportable 11/15/17 09:00 [place] Rings Not Reportable 11/15/17 09:00 [place] Cells Not Reportable 11/15/17 09:00 Bite Cells Not Reportable 11/15/17 09:00 Crenated Cell Not Reportable 11/15/17 09:00 Elliptocytes Not Reportable 11/15/17 09:00 Acanthocytes (Spur) Not Reportable 11/15/17 09:00 Rouleaux Not Reportable 11/15/17 09:00 Hemoglobin C Crystals Not Reportable 11/15/17 09:00 Schistocytes Not Reportable 11/15/17 09:00 Malaria parasites Not Reportable 11/15/17 09:00 Pardeep Bodies Not Reportable 11/15/17 09:00 Hem Pathologist Commnt No 11/15/17 09:00 PT 12.8 Sec. (12.2-14.9) 11/16/17 09:45 INR 0.92 (0.87-1.13) 11/16/17 09:45 VBG pH 7.436 (7.320-7.420) H 11/12/17 20:55 Sodium 138 mmol/L (137-145) 11/15/17 09:00 Potassium 3.9 mmol/L (3.6-5.0) 11/15/17 09:00 Chloride 102.8 mmol/L (98-107) 11/15/17 09:00 Carbon Dioxide 22 mmol/L (22-30) 11/15/17 09:00 Anion Gap 17 mmol/L 11/15/17 09:00 BUN 11 mg/dL (9-20) 11/15/17 09:00 Creatinine 0.9 mg/dL (0.8-1.5) 11/15/17 09:00 Estimated GFR > 60 ml/min 11/15/17 09:00 BUN/Creatinine Ratio 12 % 11/15/17 09:00 Glucose 94 mg/dL (75-100) 11/15/17 09:00 Lactic Acid 1.00 mmol/L (0.7-2.0) 11/12/17 23:16 Calcium 9.4 mg/dL (8.4-10.2) 11/16/17 09:45 Phosphorus 2.90 mg/dL (2.5-4.5) D 11/16/17 09:45 Magnesium 2.00 mg/dL (1.7-2.3) 11/15/17 09:00 Total Bilirubin 7.90 mg/dL (0.1-1.2) H 11/16/17 09:45 Direct Bilirubin 6.4 mg/dL (0-0.2) H 11/16/17 09:45 Indirect Bilirubin 1.5 mg/dL 11/16/17 09:45 AST 77 units/L (5-40) H 11/16/17 09:45 ALT 125 units/L (7-56) H 11/16/17 09:45 Alkaline Phosphatase 136 units/L (35-129) H 11/16/17 09:45 Troponin T < 0.010 ng/mL (0.00-0.029) 11/12/17 20:48 Total Protein 6.7 g/dL (6.3-8.2) 11/16/17 09:45 Albumin 3.1 g/dL (3.9-5) L 11/16/17 09:45 Albumin/Globulin Ratio 0.9 % 11/16/17 09:45 Urine Color Lakshmi (Yellow) 11/13/17 03:22 Urine Turbidity Slightly cloudy (Clear) 11/13/17 03:22 Urine pH 5.0 (5.0-7.0) 11/13/17 03:22 Ur Specific [place] 1.030 (1.003-1.030) 11/13/17 03:22 Urine Protein 100 mg/dl mg/dL (Negative) 11/13/17 03:22 Urine Glucose (UA) Neg mg/dL (Negative) 11/13/17 03:22 Urine Ketones Tr mg/dL (Negative) 11/13/17 03:22 Urine Blood Mod (Negative) 11/13/17 03:22 Urine Nitrite Neg (Negative) 11/13/17 03:22 Urine Bilirubin Sm (Negative) 11/13/17 03:22 Urine Ictotest Positive (Negative) 11/13/17 03:22 Urine Urobilinogen 4.0 mg/dL (<2.0) 11/13/17 03:22 Ur Leukocyte Esterase Mod (Negative) 11/13/17 03:22 Urine WBC (Auto) 91.0 /HPF (0.0-6.0) H 11/13/17 03:22 Urine RBC (Auto) 4.0 /HPF (0.0-6.0) 11/13/17 03:22 U Epithel Cells (Auto) 1.0 /HPF (0-13.0) 11/13/17 03:22 Hyaline Casts 29 /LPF 11/13/17 03:22 Granular Casts 5 /LPF 11/13/17 03:22 Urine Mucus 1+ /HPF 11/13/17 03:22 Urine Opiates Screen Presumptive negative 11/13/17 09:58 Urine Methadone Screen Presumptive negative 11/13/17 09:58 Acetaminophen < 5.0 ug/mL (10.0-30.0) L 11/12/17 22:14 Ur Barbiturates Screen Presumptive negative 11/13/17 09:58 Ur Phencyclidine Scrn Presumptive negative 11/13/17 09:58 Ur Amphetamines Screen Presumptive negative 11/13/17 09:58 U Benzodiazepines Scrn Presumptive negative 11/13/17 09:58 Urine Cocaine Screen Presumptive negative 11/13/17 09:58 U Marijuana (THC) Screen Presumptive positive 11/13/17 09:58 Drugs of Abuse Note Disclamer 11/13/17 09:58 Hepatitis A IgM Ab Non-reactive (NonReactive) 11/12/17 22:17 Hep Bs Antigen Non-reactive (Negative) 11/12/17 22:17 Hep B Core IgM Ab Non-reactive (NonReactive) 11/12/17 22:17 Hepatitis C Antibody Non-reactive (NonReactive) 11/12/17 22:17 Monoscreen Negative (Negative) 11/14/17 12:23 HIV 1&2 Antibody Rapid Non react (Non React) 11/14/17 12:29 HIV P24 Antigen Non react (Non React) 11/14/17 12:29 Influenza A (Rapid) Negative (Negative) 11/12/17 22:40 Influenza B (Rapid) Negative (Negative) 11/12/17 22:40
[2017-11-16] MEDS: TORADOL IV PRN (19:30)
[2017-11-17] MEDS: NACL 0.9% 1000 ML 1,000 ML IV SCH ×2 (00:13→07:26)
[2017-11-17] MEDS: TORADOL IV PRN ×2 (03:10→14:46)
[2017-11-17 08:42] VITALS: BP 127/66
[2017-11-17] MEDS: LEVAQUIN 750MG/150ML 750 MG/150 ML BAG IV SCH (10:29)
[2017-11-17] MEDS: HEPARIN SUB-Q SCH (10:30)
[2017-11-17] MEDS: PEPCID PO SCH (10:30)
--- NOTE | 2017-11-17 11:05 | Progress Note ---
Assessment and Plan Assessment and plan: --Febrile illness; possible viral syndrome Fevers trending down, continue antipyretics, empiric antibiotics Follow cultures, IV fluids and supportive care, ID consultation Influenza, hepatitis, mono screen, HIV are negative --Acute liver injury; with transaminitis;,hyperbilirubinemia Hepatitis panel negative, F/u MRCP from 11/16/17 --Hypomagnesemia/hypokalemia; corrected --Moderate malnutrition/hypoalbuminemia; nutrition supplements and supportive care --DVT prophylaxis with Lovenox GI evaluation and recommendations noted -possible liver biopsy per GI History Interval history: 27-year-old obese male patient with no significant past medical history Was admitted with fever and viral syndrome-like picture, Continues to have fever , on empiric antibiotics, influenza, hepatitis, HIV, mono negative Hospitalist Physical - Constitutional Vitals: Temp Pulse Resp BP Pulse Ox 98.5 F 90 20 127/66 98 11/17/17 07:44 11/16/17 21:21 11/17/17 07:44 11/17/17 07:44 11/16/17 21:21 General appearance: Present: mild distress, well-nourished, obese - EENT Eyes: Present: PERRL, EOM intact ENT: hearing intact, clear oral mucosa, dentition normal - Neck Neck: Present: supple, normal ROM - Respiratory Respiratory effort: normal Respiratory: bilateral: CTA - Cardiovascular Rhythm: regular Heart Sounds: Present: S1 & S2. Absent: gallop, rub - Extremities Extremities: no ischemia, No edema, Full ROM - Abdominal General gastrointestinal: soft, non-tender, non-distended, normal bowel sounds - Integumentary Integumentary: Present: clear, warm, dry - Neurologic Neurologic: CNII-XII intact, moves all extremities Results - Labs CBC & Chem 7: 11/15/17 09:00 11/15/17 09:00 Labs: Laboratory Last Values WBC 17.8 K/mm3 (4.5-11.0) H 11/15/17 09:00 RBC 4.47 M/mm3 (3.65-5.03) 11/15/17 09:00 Hgb 12.8 gm/dl (11.8-15.2) 11/15/17 09:00 Hct 37.7 % (35.5-45.6) 11/15/17 09:00 MCV 84 fl (84-94) 11/15/17 09:00 MCH 29 pg (28-32) 11/15/17 09:00 MCHC 34 % (32-34) 11/15/17 09:00 RDW 14.4 % (13.2-15.2) 11/15/17 09:00 Plt Count 123 K/mm3 (140-440) L 11/15/17 09:00 Lymph % (Auto) 4.0 % (13.4-35.0) L 11/14/17 05:23 [place] % (Auto) 7.9 % (0.0-7.3) H 11/14/17 05:23 Eos % (Auto) 3.4 % (0.0-4.3) 11/14/17 05:23 Baso % (Auto) 0.4 % (0.0-1.8) 11/14/17 05:23 Lymph # 0.5 K/mm3 (1.2-5.4) L 11/14/17 05:23 [place]ores # 1.0 K/mm3 (0.0-0.8) H 11/14/17 05:23 Eos # 0.4 K/mm3 (0.0-0.4) 11/14/17 05:23 Baso # 0.0 K/mm3 (0.0-0.1) 11/14/17 05:23 Add Manual Diff Complete 11/15/17 09:00 Total Counted 100 11/15/17 09:00 Seg Neutrophils % 84.3 % (40.0-70.0) H 11/14/17 05:23 Seg Neuts % (Manual) 83.0 % (40.0-70.0) H 11/15/17 09:00 Band Neutrophils % 3.0 % 11/15/17 09:00 Lymphocytes % (Manual) 6.0 % (13.4-35.0) L 11/15/17 09:00 Reactive Lymphs % (Man) 0 % 11/15/17 09:00 Monocytes % (Manual) 5.0 % (0.0-7.3) 11/15/17 09:00 Eosinophils % (Manual) 3.0 % (0.0-4.3) 11/15/17 09:00 Basophils % (Manual) 0 % (0.0-1.8) 11/15/17 09:00 Metamyelocytes % 0 % 11/15/17 09:00 Myelocytes % 0 % 11/15/17 09:00 Promyelocytes % 0 % 11/15/17 09:00 Blast Cells % 0 % 11/15/17 09:00 Nucleated RBC % Not Reportable 11/15/17 09:00 Seg Neutrophils # 10.5 K/mm3 (1.8-7.7) H 11/14/17 05:23 Seg Neutrophils # Man 14.8 K/mm3 (1.8-7.7) H 11/15/17 09:00 Band Neutrophils # 0.5 K/mm3 11/15/17 09:00 Lymphocytes # (Manual) 1.1 K/mm3 (1.2-5.4) L 11/15/17 09:00 Abs React Lymphs (Man) 0.0 K/mm3 11/15/17 09:00 Monocytes # (Manual) 0.9 K/mm3 (0.0-0.8) H 11/15/17 09:00 Eosinophils # (Manual) 0.5 K/mm3 (0.0-0.4) H 11/15/17 09:00 Basophils # (Manual) 0.0 K/mm3 (0.0-0.1) 11/15/17 09:00 Metamyelocytes # 0.0 K/mm3 11/15/17 09:00 Myelocytes # 0.0 K/mm3 11/15/17 09:00 Promyelocytes # 0.0 K/mm3 11/15/17 09:00 Blast Cells # 0.0 K/mm3 11/15/17 09:00 WBC Morphology Not Reportable 11/15/17 09:00 Hypersegmented Neuts Not Reportable 11/15/17 09:00 Hyposegmented Neuts Not Reportable 11/15/17 09:00 Hypogranular Neuts Not Reportable 11/15/17 09:00 Smudge Cells Not Reportable 11/15/17 09:00 Toxic Granulation Not Reportable 11/15/17 09:00 Toxic Vacuolation Not Reportable 11/15/17 09:00 Dohle Bodies Not Reportable 11/15/17 09:00 Pelger-Huet Anomaly Not Reportable 11/15/17 09:00 Gina Rods Not Reportable 11/15/17 09:00 Platelet Estimate Consistent w auto 11/15/17 09:00 Clumped Platelets Not Reportable 11/15/17 09:00 Plt Clumps, EDTA Not Reportable 11/15/17 09:00 Large Platelets Not Reportable 11/15/17 09:00 Giant Platelets Not Reportable 11/15/17 09:00 Platelet Satelliting Not Reportable 11/15/17 09:00 Plt Morphology Comment Not Reportable 11/15/17 09:00 RBC Morphology Not Reportable 11/15/17 09:00 Dimorphic RBCs Not Reportable 11/15/17 09:00 Polychromasia Not Reportable 11/15/17 09:00 Hypochromasia Not Reportable 11/15/17 09:00 Poikilocytosis Not Reportable 11/15/17 09:00 Anisocytosis Not Reportable 11/15/17 09:00 Microcytosis Not Reportable 11/15/17 09:00 Macrocytosis Not Reportable 11/15/17 09:00 Spherocytes Not Reportable 11/15/17 09:00 Pappenheimer Bodies Not Reportable 11/15/17 09:00 Sickle Cells Not Reportable 11/15/17 09:00 Target Cells Not Reportable 11/15/17 09:00 Tear Drop Cells Not Reportable 11/15/17 09:00 Ovalocytes Not Reportable 11/15/17 09:00 Helmet Cells Not Reportable 11/15/17 09:00 [place] Bodies Not Reportable 11/15/17 09:00 [place] Rings Not Reportable 11/15/17 09:00 [place] Cells Not Reportable 11/15/17 09:00 Bite Cells Not Reportable 11/15/17 09:00 Crenated Cell Not Reportable 11/15/17 09:00 Elliptocytes Not Reportable 11/15/17 09:00 Acanthocytes (Spur) Not Reportable 11/15/17 09:00 Rouleaux Not Reportable 11/15/17 09:00 Hemoglobin C Crystals Not Reportable 11/15/17 09:00 Schistocytes Not Reportable 11/15/17 09:00 Malaria parasites Not Reportable 11/15/17 09:00 Pardeep Bodies Not Reportable 11/15/17 09:00 Hem Pathologist Commnt No 11/15/17 09:00 PT 12.8 Sec. (12.2-14.9) 11/16/17 09:45 INR 0.92 (0.87-1.13) 11/16/17 09:45 VBG pH 7.436 (7.320-7.420) H 11/12/17 20:55 Sodium 138 mmol/L (137-145) 11/15/17 09:00 Potassium 3.9 mmol/L (3.6-5.0) 11/15/17 09:00 Chloride 102.8 mmol/L (98-107) 11/15/17 09:00 Carbon Dioxide 22 mmol/L (22-30) 11/15/17 09:00 Anion Gap 17 mmol/L 11/15/17 09:00 BUN 11 mg/dL (9-20) 11/15/17 09:00 Creatinine 0.9 mg/dL (0.8-1.5) 11/15/17 09:00 Estimated GFR > 60 ml/min 11/15/17 09:00 BUN/Creatinine Ratio 12 % 11/15/17 09:00 Glucose 94 mg/dL (75-100) 11/15/17 09:00 Lactic Acid 1.00 mmol/L (0.7-2.0) 11/12/17 23:16 Calcium 9.4 mg/dL (8.4-10.2) 11/16/17 09:45 Phosphorus 2.90 mg/dL (2.5-4.5) D 11/16/17 09:45 Magnesium 2.00 mg/dL (1.7-2.3) 11/15/17 09:00 Total Bilirubin 7.90 mg/dL (0.1-1.2) H 11/16/17 09:45 Direct Bilirubin 6.4 mg/dL (0-0.2) H 11/16/17 09:45 Indirect Bilirubin 1.5 mg/dL 11/16/17 09:45 AST 77 units/L (5-40) H 11/16/17 09:45 ALT 125 units/L (7-56) H 11/16/17 09:45 Alkaline Phosphatase 136 units/L (35-129) H 11/16/17 09:45 Troponin T < 0.010 ng/mL (0.00-0.029) 11/12/17 20:48 Total Protein 6.7 g/dL (6.3-8.2) 11/16/17 09:45 Albumin 3.1 g/dL (3.9-5) L 11/16/17 09:45 Albumin/Globulin Ratio 0.9 % 11/16/17 09:45 Urine Color Lakshmi (Yellow) 11/13/17 03:22 Urine Turbidity Slightly cloudy (Clear) 11/13/17 03:22 Urine pH 5.0 (5.0-7.0) 11/13/17 03:22 Ur Specific [place] 1.030 (1.003-1.030) 11/13/17 03:22 Urine Protein 100 mg/dl mg/dL (Negative) 11/13/17 03:22 Urine Glucose (UA) Neg mg/dL (Negative) 11/13/17 03:22 Urine Ketones Tr mg/dL (Negative) 11/13/17 03:22 Urine Blood Mod (Negative) 11/13/17 03:22 Urine Nitrite Neg (Negative) 11/13/17 03:22 Urine Bilirubin Sm (Negative) 11/13/17 03:22 Urine Ictotest Positive (Negative) 11/13/17 03:22 Urine Urobilinogen 4.0 mg/dL (<2.0) 11/13/17 03:22 Ur Leukocyte Esterase Mod (Negative) 11/13/17 03:22 Urine WBC (Auto) 91.0 /HPF (0.0-6.0) H 11/13/17 03:22 Urine RBC (Auto) 4.0 /HPF (0.0-6.0) 11/13/17 03:22 U Epithel Cells (Auto) 1.0 /HPF (0-13.0) 11/13/17 03:22 Hyaline Casts 29 /LPF 11/13/17 03:22 Granular Casts 5 /LPF 11/13/17 03:22 Urine Mucus 1+ /HPF 11/13/17 03:22 Urine Opiates Screen Presumptive negative 11/13/17 09:58 Urine Methadone Screen Presumptive negative 11/13/17 09:58 Acetaminophen < 5.0 ug/mL (10.0-30.0) L 11/12/17 22:14 Ur Barbiturates Screen Presumptive negative 11/13/17 09:58 Ur Phencyclidine Scrn Presumptive negative 11/13/17 09:58 Ur Amphetamines Screen Presumptive negative 11/13/17 09:58 U Benzodiazepines Scrn Presumptive negative 11/13/17 09:58 Urine Cocaine Screen Presumptive negative 11/13/17 09:58 U Marijuana (THC) Screen Presumptive positive 11/13/17 09:58 Drugs of Abuse Note Disclamer 11/13/17 09:58 Hepatitis A IgM Ab Non-reactive (NonReactive) 11/12/17 22:17 Hep Bs Antigen Non-reactive (Negative) 11/12/17 22:17 Hep B Core IgM Ab Non-reactive (NonReactive) 11/12/17 22:17 Hepatitis C Antibody Non-reactive (NonReactive) 11/12/17 22:17 Monoscreen Negative (Negative) 11/14/17 12:23 HIV 1&2 Antibody Rapid Non react (Non React) 11/14/17 12:29 HIV P24 Antigen Non react (Non React) 11/14/17 12:29 Influenza A (Rapid) Negative (Negative) 11/12/17 22:40 Influenza B (Rapid) Negative (Negative) 11/12/17 22:40
--- NOTE | 2017-11-17 16:24 | Event Note ---
Date: 11/17/17 pt off the floor at the time of rounds. MRCP without obvious biliary abnormalities but inadequate visualization with recommendations for CT scan. imaging ordered. if non-diagnostic, will recommend liver biopsy.
[2017-11-17 21:35] LABS: ANA Screen, IFA Negative (Negative)
[2017-11-18] MEDS ORDERED: LEVAQUIN PO SCH (10:00)
== END 2017-11-17 17:00 | disposition left against medical advice (07) | DRG 442 ==
LOC: ED 20:28 → 3A 11-13 02:35
PROVIDERS: ADMIT Internal Medicine; ATTEND Hospitalist
DX: K72.00 Acute and subacute hepatic failure without coma (principal); E44.0 Moderate protein-calorie malnutrition; N39.0 Urinary tract infection, site not specified; R65.10 Systemic inflammatory response syndrome (SIRS) of non-infectious origin without acute organ dysfunction; R79.89 Other specified abnormal findings of blood chemistry; D72.829 Elevated white blood cell count, unspecified; R74.0 Nonspecific elevation of levels of transaminase and lactic acid dehydrogenase [LDH]; E80.6 Other disorders of bilirubin metabolism; E83.42 Hypomagnesemia; R04.0 Epistaxis; E87.6 Hypokalemia; Z68.38 Body mass index [BMI] 38.0-38.9, adult
CPT/HCPCS: 36415; 71046; 74181; 76705; 80053; 80074; 80307; 80320; 81001; 82140; 82310; 82390; 82805; 83735; 84100; 84484; 85007; 85025; 85610; 86038; 86235; 86308; 86665; 86695; 87040; 87086; 87400; 87806; 93005; 93010; 96374; G0480; J1644; J1885; J1956; J2543; J3475; J7030; J7040